=== PATIENT | female | born 1960 | race Caucasian/White ===

== ENCOUNTER 2016-06-08 19:39 | Emergency (ER) | payer OTHER ==
[~2016-06-08] VITALS: Ht 165.1 cm; Wt 70.3 kg
--- NOTE | 2016-06-08 19:48 | NUR ---
PT WHEELED TO WAITING ROOM, IN STABLE CONDITION
[2016-06-08 19:50] VITALS: BP 143/100; PULSE 78; RESP 18; TEMP 97.8; O2SAT 97
--- NOTE | 2016-06-08 19:55 | NUR ---
Patient to ER Chair for evaluation. Report given to BANDAR Hobson.
[2016-06-08] MEDS ORDERED: OXYCODONE/ACETAMINOPHEN *10*mg/325 mg TABLET PO ONE (20:00)
--- NOTE | 2016-06-08 20:05 | NUR ---
ER at bedside examining patient.
--- NOTE | 2016-06-08 20:10 | NUR ---
Pt brought by self, A&Ox4, pt c/o lower back pain radisting to L leg, states she run out of her percocet, skin pink and warm, cap refill <3, VSS.
[2016-06-08] MEDS ORDERED: OXYCODONE/ACETAMINOPHEN *10*mg/325 mg TABLET ONE (20:15)
[2016-06-08] MEDS ORDERED: OXYC-158 PO (20:17)
[2016-06-08] MEDS ORDERED: [UNRECOGNIZED DRUG - REMARK] (20:18)
[2016-06-08] MEDS ORDERED: CARI350T27 PO (20:18)
[2016-06-08 21:20] VITALS: BP 139/97; PULSE 70; RESP 18; TEMP 98.4; O2SAT 98
--- NOTE | 2016-06-08 21:20 | NUR ---
Patient given written and verbal discharge instructions and verbalizes understanding. ER MD discussed with patient the results and treatment provided. Patient in stable condition. ID arm band removed.Patient educated on pain management and to follow up with PMD. Pain Scale 2/10. Opportunity for questions provided and answered.
== END 2016-06-08 21:20 | disposition home or self-care (01) ==
LOC: SED 19:39
DX: M54.40 Lumbago with sciatica, unspecified side (principal); Z91.02 Food additives allergy status
CPT/HCPCS: 99282

== ENCOUNTER 2016-07-06 16:47 | Inpatient (IN) | payer OTHER ==
[~2016-07-06] VITALS: Ht 165.1 cm; Wt 76.2 kg
[2016-07-06 16:47] VITALS: BP 122/96; PULSE 89; RESP 18; TEMP 98.2; O2SAT 99
[~2016-07-06 16:47] MED LIST: CARI350T27 PO; OXYC-158 PO; [UNRECOGNIZED DRUG - REMARK]
[2016-07-06] MEDS ORDERED: methylPREDNISolone SOD SUCC/PF 62.5 MG/ML VIAL IM ONE (17:00)
[2016-07-06] MEDS ORDERED: MORPHINE SULFATE 10 MG/ML VIAL IM ONE (17:00)
--- NOTE | 2016-07-06 17:00 | NUR ---
Patient to ER bed 01 to gown for evaluation. Side rails up.
--- NOTE | 2016-07-06 17:03 | NUR ---
Pt brought by ambulance, A&Ox4, pt c/o lower back pain 08/29 since today, skin pink and diaphoretic , cap refill <3, VSS, respirations even and unlabored.
--- NOTE | 2016-07-06 17:03 | NUR ---
Dr Kidd at bedside examining patient
--- NOTE | 2016-07-06 17:25 | NUR ---
Patient having tonic-clonic seizure, duration 2 minutes, pt placed on O2 face mask , turned to the side and suctioned, VS WNL at this time . MD brown
[2016-07-06] MEDS ORDERED: LORazepam 2 MG/ML VIAL (FOR ER USE) IVP ONE (17:30)
--- NOTE | 2016-07-06 17:30 | NUR ---
Seizure precautions in place. Seizure pads applied to gurney. Side rails up.
[2016-07-06] MEDS ORDERED: LORazepam 2 MG/ML VIAL (FOR ER USE) ONE (17:35)
[2016-07-06 17:58] LABS: BASOPHILS % (AUTO) 0.3 % (0.0-2.0); EOSINOPHILS % (AUTO) 0.1 % (0.0-4.0); HEMATOCRIT 40.4 % (36-48); HEMOGLOBIN 13.2 g/dL (12.0-16.0); LYMPHOCYTES % (AUTO) 8.7 % (20.5-51.5); MEAN CORPUSCULAR HEMOGLOBIN 29 pg (27-31); MEAN CORPUSCULAR HGB CONC 33 % (32-36); MEAN CORPUSCULAR VOLUME 88 fL (79.0-98.0); MONOCYTES # (AUTO) 0.4 K/uL (0.0-1.0); MONOCYTES % (AUTO) 3.3 % (1.7-9.3); NEUTROPHILS # (AUTO) 10.1 K/uL (1.8-7.7); NEUTROPHILS % (AUTO) 87.6 % (40.0-70.0); PLATELET COUNT (AUTO) 323 K/uL (130-430); RED BLOOD CELL COUNT(AUTO) 4.58 MIL/uL (4.2-6.2); RED CELL DISTRIBUTION WIDTH 13.7 % (9.0-15.0); WHITE BLOOD COUNT (AUTO) 11.5 K/uL (4.8-10.8)
[2016-07-06] MEDS ORDERED: TRAZ300T2 PO (18:01)
[2016-07-06] MEDS ORDERED: PRO20 PO (18:01)
[2016-07-06] MEDS ORDERED: SOM350 PO (18:01)
[2016-07-06] MEDS ORDERED: ZOLP10TA2 PO (18:01)
[2016-07-06] MEDS ORDERED: LISI10TA5 PO (18:01)
[2016-07-06 18:09] LABS: ANION GAP 23 (5-15); CALCIUM 8.8 mg/dL (8.4-11.0); CREATININE 0.95 mg/dL (0.55-1.30); GLUCOSE 292 mg/dL (70-99); UREA NITROGEN, BLOOD 5 mg/dL (8-21)
[2016-07-06 18:14] LABS: GFR AFRICAN AMERICAN 78 mL/min (>90)
[2016-07-06 18:18] LABS: CHLORIDE 73 mmol/L (98-107); POTASSIUM 2.6 mmol/L (3.5-5.1); SODIUM SERUM 111 mmol/L (136-145)
[2016-07-06 18:20] LABS: ALANINE AMINOTRANSFERASE 18 U/L (12-78); ALBUMIN 4.1 g/dL (3.4-4.8); ASPARTATE AMINOTRANSFERASE 19 U/L (10-37); TOTAL BILIRUBIN 0.9 mg/dL (0.0-1.0); TOTAL PROTEIN, SERUM 8.2 g/dL (6.4-8.3)
[2016-07-06 18:21] LABS: PHENYTOIN (DILANTIN) 0.5 ug/mL (10.0-20.0); VALPROIC ACID < 3 ug/mL (50-100)
[2016-07-06] MEDS ORDERED: NACL 0.9% 1,000 ML IV ONE ×2 (18:30→19:00)
[2016-07-06 18:38] LABS: CARBAMAZEPINE (TEGRETOL) < 0 ug/mL (4-12)
[2016-07-06] MEDS ORDERED: KCL 20 mEq in 100 mL (PREMIX) 100 ML IV ONE (18:45)
[2016-07-06 18:54] LABS: BARBITURATE, URINE NEGATIVE (NEG <=200); BENZODIAZEPINE, URINE NEGATIVE (NEG <=150); CANNABINOID, URINE NEGATIVE (NEG <=50); COCAINE, URINE NEGATIVE (NEG <=150); METHAMPHETAMINES SCREEN,URINE NEGATIVE (NEG <=500); OPIATE, URINE POSITIVE (NEG <=100); PHENCYCLIDINE SCREEN,URINE NEGATIVE (NEG <=25); UR TRICYCLIC ANTIDEPRESSANTS NEGATIVE (NEG <=300); URINE AMPHETAMINE NEGATIVE (NEG <=500); URINE METHADONE NEGATIVE (NEG <=200); URINE OXYCODONE SCREEN NEGATIVE (NEG <=100); URINE PROPOXYPHENE SCREEN NEGATIVE (NEG <=300)
--- NOTE | 2016-07-06 19:00 | NUR ---
Sean abdullahi in [facility] - 07/06/16 at [address] Bennett called by front desk monitor for STAT renal consult
--- NOTE | 2016-07-06 19:00 | NUR ---
Patient will be admitted to care of Dr Singh . Admitted to Tele unit. Will go to room 113A. Belongings list completed. Summary report printed. Report will be given at bedside.
--- NOTE | 2016-07-06 19:20 | NUR ---
ADMIT NOTE Received pt from ER to the floor with a diagnosis of seizure and hyponatremia. Admission process initiated. patient oriented to pain management, safety and call light-teach back done.
[2016-07-06 19:34] VITALS: BP 157/93; PULSE 82; RESP 20; O2SAT 97
--- NOTE | 2016-07-06 19:53 | NUR ---
recieved call from dr. cardenas- report to md labs and complain. md order lab urine na, urine osmolality, urine creatinine. serum osmolality.
--- NOTE | 2016-07-06 19:57 | NUR ---
CONSULTATION PAGED REASON FOR CONSULTATION:HYPONATREMIA WAS CONSULT CALLED?Y PERSON WHO WAS NOTIFIED:[facility] CONSULTING PHYSICIAN:ISADORA FERRO (JESSY [facility]LLINS SENIOR TECHNICAL BUSINESS ANALYST) CEMENT TESTER ASSISTANT SPECIALTY:RENAL CEMENT TESTER ASSISTANT PHONE NUMBER:[phone]
--- NOTE | 2016-07-06 20:00 | NUR ---
Initial Notes Patient alert, able to make needs known. Patient denies pain at this time. No SOB noted, on room air. Denies nausea/vomiting at this time. IV site patent, flushes well. Hx: Seizure-side rails padded. Family members at bedside. Goal of pain management, cardiac/GI stability and safety this shift. Call light within reach. Will continue to monitor.
[2016-07-06 21:21] LABS: CALCIUM 8.4 mg/dL (8.4-11.0); CREATININE 0.69 mg/dL (0.55-1.30); POTASSIUM 3.5 mmol/L (3.5-5.1)
[2016-07-06 21:47] LABS: TOTAL BILIRUBIN 0.7 mg/dL (0.0-1.0)
[2016-07-06 21:48] LABS: ALBUMIN 3.7 g/dL (3.4-4.8); TOTAL PROTEIN, SERUM 7.8 g/dL (6.4-8.3)
--- NOTE | 2016-07-06 21:50 | NUR ---
Spoke to on the phone, informed regarding critical value of Na-112 and Chloride- 78. New orders received. Will carry out. state to call her later for when other lab results come back.
--- NOTE | 2016-07-06 22:15 | NUR ---
Notes Patient resting in bed, c/o pain, will page MD for orders. No SOB noted at this time. Patient used bedpan to void. IV site patent, flushes well, infusing fluids as ordered. Call light within reach. Will continue to monitor.
[2016-07-06] MEDS: SODIUM CHLORIDE 3% *HI-ALERT* 250 ML IV SCH (22:21)
--- NOTE | 2016-07-06 23:33 | NUR ---
PAGED: I PAGED DR. BLAS @ [phone] I SPOKE WITH GARETT EXCHANGE
[2016-07-06 23:50] VITALS: BP 160/104; PULSE 88; RESP 16; TEMP 97; O2SAT 96
--- NOTE | 2016-07-06 23:56 | NUR ---
PAGED: I PAGED ELMO. ASSOCIATE @ [phone] DR. BLAS IMAGING NURSE SHARON I SPOKE WITH RISHABH VALERO
--- NOTE | 2016-07-07 00:10 | NUR ---
Notes Patient sleeping at this time. Awaiting on to call back, pt c/o pain. No SOB noted. Afebrile. IV site patent, flushes well. Call light within reach. Will continue to monitor.
[2016-07-07] MEDS: MORPHINE 2 MG/ML INJ. SYRINGE IVP PRN ×5 (01:18→20:39)
--- NOTE | 2016-07-07 02:05 | NUR ---
Notes Patient sleeping at this time. No s/s of pain noted. No SOB noted at this time. IV site patent, flushes well, infusing fluids as ordered. Call light within reach. Will continue to monitor.
--- NOTE | 2016-07-07 04:25 | NUR ---
Notes Patient sleeping at this time. No s/s of pain noted. No SOB noted. Afebrile. IV site patent, flushes well. Call light within reach. Will continue to monitor.
[2016-07-07 04:34] LABS: ALBUMIN 3.5 g/dL (3.4-4.8); CALCIUM 8.7 mg/dL (8.4-11.0); CREATININE 0.63 mg/dL (0.55-1.30); POTASSIUM 4.1 mmol/L (3.5-5.1); THYROID STIMULATING HORMONE 0.31 uIu/mL (0.34-4.82); TOTAL BILIRUBIN 0.6 mg/dL (0.0-1.0); TOTAL PROTEIN, SERUM 7.3 g/dL (6.4-8.3)
[2016-07-07 05:15] VITALS: BP 157/100; PULSE 94; RESP 16; TEMP 97.8; O2SAT 97
--- NOTE | 2016-07-07 06:46 | NUR ---
Closing Notes Patient denies pain at this time. No SOB noted, on room air. Denies nausea/vomiting at this time. IV site patent, flushes well. Seizure-side rails padded. Goal of pain management, cardiac/GI stability and safety met. Call light within reach. Will continue to monitor.
--- NOTE | 2016-07-07 08:00 | NUR ---
RN Rounds patient lying on bed alert oriented X4, patient was assessed and patient said she is feeling better today, her iv of 3% NS is running as ordered. Dr. cardenas was called to D/C the order of the 0.9% NS IVF that was ordered but never ran. and the normal saline was D/C through a phone order. will follow up with the patient.
--- NOTE | 2016-07-07 08:00 | NUR ---
RN Rounds Patient lying on bed was assessed , vital signs stable , patient is alert oriented . patient is running her ivf as prescribed will follow up
[2016-07-07 08:04] VITALS: BP 137/88; PULSE 90; RESP 14; TEMP 99.3; O2SAT 97
--- NOTE | 2016-07-07 08:44 | NUR ---
Nutrition Update Justin Scale 18 noted. Pt admitted for seizure, hyponatremia. Diet: NPO BMI: 28 kg/m2 RD to follow per nutrition care standards.
--- NOTE | 2016-07-07 09:08 | NUR ---
MD HERRERA SPOKE WITH ROBB TO PAGE DR. HERNANDEZ (SPANISH INSTRUCTOR FOR ÁNGEL HUTCHINS) PER BANDAR SCHMITT.
[2016-07-07 09:16] LABS: URINE SODIUM, RANDOM 149 mmol/L (40-220)
--- NOTE | 2016-07-07 10:13 | NUR ---
CONSULTATION CALLED REASON FOR CONSULT: SEIZURES PERSON WAS CALLED: [facility] [employer]S[facility]ING [employer]: MARY ( [employer] ARCHITECT FOR CEZAR RAMOS )
[2016-07-07] MEDS ORDERED: NS IV ONE (10:15)
[2016-07-07] MEDS ORDERED: PHENYTOIN SODIUM IV ONE (10:15)
[2016-07-07] MEDS ORDERED: PHENYTOIN SODIUM INJ 500 MG in NS 100 ML IV ONE (10:15)
--- NOTE | 2016-07-07 10:30 | NUR ---
RN ROUNDS PATIENT LEFT WRIST IVF WAS NOT WORKING, PATIENT WAS STARTED A NEW SALINE LOCK AT HER RIGHT FORE ARM.. PATIENT STILL LYING IN BED HUNGRY,, DR. BLAS WAS CONTACTED REGARDING ORDERING HER A DIET OR KEEPING HER NPO. WILL FOLLOW UP WITH DR. BLAS WELL WITH THE PATIENT
[2016-07-07 12:16] VITALS: BP 150/88; PULSE 91; RESP 18; TEMP 99; O2SAT 97
--- NOTE | 2016-07-07 12:30 | NUR ---
RN Rounds, patient was repositioned in bed the linen was straightened for the patient after emptying the bed centeno. since the patient is using the bed centeno for urine. but no bowel movement. will follow up on the patient's lab
--- NOTE | 2016-07-07 13:30 | NUR ---
RN Rounds patient complained of lower back pain, patient was given her pain med and patient was reassessed and it was 0 on 0/10 scale will follow up
--- NOTE | 2016-07-07 15:00 | NUR ---
RN Rounds patient was told to bring the home medication for Dr. Chino, patient will tell he son to bring it up. patient complained of no pain at this time. still the IVF of 3% Saline running, patient still voiding so almost every 2 hours. patient admits to over drink water at home.
[2016-07-07 16:23] VITALS: BP_SYST 111; BP_SYST 141; BP_DIAS 68; BP_DIAS 70; PULSE 70; PULSE 80; RESP 16; RESP 18; TEMP 98.4; TEMP 99.2; O2SAT 94; O2SAT 95
--- NOTE | 2016-07-07 17:00 | NUR ---
RN Rounds the doctor was contacted to get a meal for the patient. was allowed to eat regular diet. patient is more alert, has no complaints of pain or discomfort. will follow up .
[2016-07-07 17:39] LABS: CALCIUM 8.8 mg/dL (8.4-11.0); CREATININE 0.85 mg/dL (0.55-1.30); POTASSIUM 3.6 mmol/L (3.5-5.1)
[2016-07-07 17:42] LABS: ALBUMIN 3.5 g/dL (3.4-4.8); TOTAL BILIRUBIN 0.4 mg/dL (0.0-1.0); TOTAL PROTEIN, SERUM 7.2 g/dL (6.4-8.3)
--- NOTE | 2016-07-07 17:58 | NUR ---
RN Rounds patient lying on bed, eating her dinner. has no complaints. ivf still running. no issue for the time being.
[2016-07-07 19:40] VITALS: BP 139/71; PULSE 91; RESP 20; TEMP 97.2; O2SAT 98
--- NOTE | 2016-07-07 19:40 | NUR ---
INITIAL NOTES; -Pt is a/ox4, resting in bed. Pt denies any chest pain,pain,sob,or any acute distress. Vital signs 97.4, 139/71,91, 20,m0wys=94% r/a. IV site of rt f/a patent, both #22, no s/s any infiltration noted,drsg cdi. IVF NACL 3% @ 10ml/hr. Lung sounds sunil upper anterior lobes clear throughout all lobes. BS present,abdomen soft & nondistended. Assistance with bedpan. Seizure precaution in place. All side rails padded. Sunil pedi pulse normal, present. All safety measures in place. Discussed poc, all safety measures, instructed pt not to get out bed by self, if needs assistance, to use call light for assistance, pt verbalized understanding. Fall precaution in place. Call light w/in reach. Continue to monitor pt.
--- NOTE | 2016-07-07 19:48 | NUR ---
GAGANDEEP CALLED REGARDING A LAB RESULT INCLUDING SODIUM RESULT, NS 3% RATE DECREASED FROM 3% TO 2% BY DR. RUANO AND TO ORDER CMP AT 2300 AND TO CALL MD FOR LAB RESULT. -NO FURTHER ORDER PER MD THIS TIME. Addendum: 07/07/16 at 2016 by Brandee Theodore RN CORRECTION--NACL--NOT NS.
--- NOTE | 2016-07-07 20:39 | NUR ---
PAIN MEDICATION ADMINISTERED; -Pt is c/o abdominal pain, gave Morphine Sulfate 2mg IVP. See EMAR for pain reassessment w/in 30 mins. -Explained to pt after received pain medication, instructed pt not to get out bed by self, if needs assistance, to use call light for assistance, pt verbalized understanding. Fall precaution in place. Call light w/in reach. Continue to monitor pt.
[2016-07-07] MEDS: PHENYTOIN SODIUM 100 MG/2 ML VIAL (DILANTIN) IVP SCH (21:17)
[2016-07-07] MEDS: SODIUM CHLORIDE 3% *HI-ALERT* 250 ML IV SCH (21:22)
--- NOTE | 2016-07-07 22:16 | NUR ---
ROUNDS'; -Pt is resting in bed. Pt denies any chest pain,pain,sob,or any acute distress this time. No seizure activity noted. Fall precaution and seizure precaution in place. Call light w/in reach. Continue to monitor pt.
--- NOTE | 2016-07-07 22:49 | NUR ---
PAGED DR. BLAS REGARDING SLEEPING PILL -Pt is c/o unable to sleep,needed sleeping pill. Paged , now waiting for MD to return callback.
[2016-07-07 23:31] LABS: ALBUMIN 3.3 g/dL (3.4-4.8); CALCIUM 8.3 mg/dL (8.4-11.0); CREATININE 1.03 mg/dL (0.55-1.30); POTASSIUM 3.6 mmol/L (3.5-5.1); TOTAL BILIRUBIN 0.2 mg/dL (0.0-1.0); TOTAL PROTEIN, SERUM 6.8 g/dL (6.4-8.3)
--- NOTE | 2016-07-07 23:59 | NUR ---
NOTIFIED DR. RUANO REGARDING A LAB RESULT (CMP), -STOP NACL 3% NOW, SALINE KAYE PER . Addendum: 07/08/16 at 0046 by Brandee Theodore RN ADDITIONAL NOTES; READ TO DR. RUANO A LAB RESULT(CMP) INCLUDING XREULP=146, AND MORE. STOP IVF NACL 3%, SALINE LOCK PER .
[2016-07-08] VITALS: BP 112/67; PULSE 80; RESP 16; TEMP 98; O2SAT 95
--- NOTE | 2016-07-08 00:01 | NUR ---
STOPPED NACL 3% IVF PER MD
[2016-07-08] MEDS: ZOLPIDEM TARTRATE 5 MG TABLET PO PRN ×2 (00:06→22:33)
--- NOTE | 2016-07-08 00:06 | NUR ---
ROUNDS; GAVE AMBIEN 10MG PO FOR SLEEPING -Gave Ambien 10 mg po upon pt requested for sleeping. Pt denies any pain,sob,or any acute distress. No seizure activity noted. Fall precaution and seizure precaution in place. Call light w/in reach. Continue to monitor pt.
--- NOTE | 2016-07-08 00:35 | NUR ---
ENDORSED TO MICHAEL TO CONTINUE CARE -Pt is resting. No s/s any pain,sob,or any acute distress noted. No seizure activity noted. Fall precaution and seizure precaution in place. Call light w/in reach. Continue to monitor pt.
--- NOTE | 2016-07-08 00:35 | NUR ---
RECEIVED REPORT FROM CARMELA PORTILLO. ACCEPTING PATIENT CARE.
--- NOTE | 2016-07-08 01:48 | NUR ---
ROUNDS PATIENT IS SLEEPING WITH VISIBLE RISE AND FALL OF CHEST. NO ACTUE S/S OF DISTRESS NOTED. BED IN LOWEST POSITION, SEIZURE PRECAUTIONS IN PLACE, BED ALARM ON, CALL LIGHT WITHIN REACH.
[2016-07-08] MEDS: MORPHINE 2 MG/ML INJ. SYRINGE IVP PRN ×3 (03:09→21:10)
--- NOTE | 2016-07-08 03:45 | NUR ---
ROUNDS PATIENT IS SLEEPING WITH VISIBLE RISE AND FALL OF CHEST NOTED. NO ACUTE S/S OF DISTRESS. BED IN LOWEST POSITION, SEIZURE AND FALL PRECAUTIONS IN PLACE, BED ALARM ON. CALL LIGHT WITHIN REACH. WILL CONTINUE TO MONITOR
[2016-07-08 04:00] VITALS: BP 114/67; PULSE 79; RESP 16; TEMP 97.1; O2SAT 96
[2016-07-08] MEDS: PHENYTOIN SODIUM 100 MG/2 ML VIAL (DILANTIN) IVP SCH ×2 (05:52→13:24)
--- NOTE | 2016-07-08 06:00 | NUR ---
ROUNDS PATIENT AWAKE AND ALERT. COMPLAINING OF PAIN 10/29. EXPLAINED TO PATIENT PAIN MEDICATION WAS Q4 AND COULD NOT BE ADMINISTERED UNTIL 708. PT VERBALIZED UNDERSTANDING. NO ACUTE S/S OF DISTRESS NOTED. FALL AND SEIZURE PRECAUTIONS IN PLACE WILL CONTINUE TO MONITOR. CALL LIGHT WITHIN REACH.
[2016-07-08 06:41] LABS: CALCIUM 8.9 mg/dL (8.4-11.0); CREATININE 0.98 mg/dL (0.55-1.30); POTASSIUM 3.4 mmol/L (3.5-5.1)
--- NOTE | 2016-07-08 08:00 | NUR ---
OPENING NOTE PT IN BED, EATING BREAKFAST. VS STABLE AND PT REPORTED SHE IS NOT IN PAIN OR UNCOMFORTABLE. FRIEND AT BEDSIDE.
--- NOTE | 2016-07-08 10:00 | NUR ---
ROUNDS PT SLEEPING IN BED. HER FRIEND IS SLEEPING AT BEDSIDE
[2016-07-08] MEDS ORDERED: POTASSIUM CHLORIDE 20 MEQ TAB.PRT.SR PO ONE (10:45)
--- NOTE | 2016-07-08 12:00 | NUR ---
ROUNDS PT SITTING UP IN BED, SPEAKING TO A FRIEND WHO IS AT BEDSIDE
[2016-07-08 12:42] VITALS: BP 134/64; PULSE 84; RESP 16; TEMP 98.8; O2SAT 95
--- NOTE | 2016-07-08 14:00 | NUR ---
ROUNDS PT IS SITTING UP IN BED, SPEAKING TO A FRIEND WHO IS AT BEDSIDE
--- NOTE | 2016-07-08 16:20 | NUR ---
ROUNDS PT IS IN BED, SLEEPING. SHE IS CLEAN AND APPEARS COMFORTABLE
[2016-07-08 16:41] VITALS: BP 129/91; PULSE 72; RESP 19; TEMP 99.3; O2SAT 97
--- NOTE | 2016-07-08 18:24 | NUR ---
ROUNDS PT IN BED, RESTING, AND APPEARS COMFORTABLE
[2016-07-08 19:30] VITALS: BP 130/65; PULSE 75; RESP 17; TEMP 98.5; O2SAT 97
--- NOTE | 2016-07-08 19:30 | NUR ---
INITIAL NOTE PT. RECEIVED AAOX4, NO S/S OF SOB OR DISTRESS. PT. STATES SHE IS HAVING PAIN AT THIS TIME IN HER LOWER BACK BUT THAT THE SALINE FLUSH CAUSES HER PAIN, SHE DOES NOT WISH TO HAVE HER MEDS THROUGH HER IV, BUT RATHER ORALLY. WILL NOTIFY MD, AND ASK FOR PO MEDICATION ORDERS. VSS. IV ACCESS NOTED TO LEFT HAND, 18 GAUGE, SALINE LOCK.NO REDNESS OR SWELLING TO THE SITE. THE LINE DOES FLUSH WELL AND HAS GOOD BLOOD RETURN, BUT PT. IS SENSITIVE TO THE FLUSHING EVEN WHEN DONE SLOWLY. PLAN OF CARE HAS BEEN DISCUSSED. ENCOURAGED PT. TO CALL FOR ASSISTANCE. VERBALIZES UNDERSTANDING. WILL CONTINUE TO MONITOR FOR CHANGES. SAFETY, FALL, AND SEIZURE PRECAUTIONS IN PLACE. CALL LIGHT IN REACH, SIDE RAILS PADDED FOR SAFETY.
--- NOTE | 2016-07-08 22:05 | NUR ---
ROUNDS PT. RESTING IN BED AT THIS TIME. DENIES PAIN. SPOKE WITH DR. ANTHONY WHO GAVE PO MED ORDERS FOR VICODIN AND DILANTIN. WILL ADMINISTER DILANTIN SOON IT IS READY IN THE [facility]. NO OTHER SIGNS OF DISTRESS NOTED AT THIS TIME. WILL CONTINUE TO MONITOR CLOSELY. SAFETY, FALL, AND SEIZURE PRECAUTIONS IN PLACE, CALL LIGHT IN REACH. BED IN LOWEST LOCKED POSITION.
[2016-07-08] MEDS: PHENYTOIN 100 MG CAPSULE PO SCH (23:33)
--- NOTE | 2016-07-09 00:06 | NUR ---
ROUNDS PT SLEEPING, BUT EASILY AWAKENS. NO S/S OF SOB OR DISTRESS. PT. STATES PAIN HAS IMPROVED FOLLOWING ADMINISTRATION OF PAIN MEDICATION. WILL CONTINUE TO MONITOR FOR CHANGES. SAFETY, FALL AND SEIZURE PRECAUTIONS IN PLACE. CALL LIGHT IN REACH. BED IN LOWEST LOCKED POSITION. PT. DOES NOT HAVE A HEADBOARD ON THE BED TO PLACE THE ALARM ON WAS SLEEPING IN BED WITH HER AND HE IS LONG, SO THEY REMOVED IT. EDUCATED PT. TO CALL FOR ASSISTANCE PRIOR TO GETTING OUT OF BED, VERBALIZES UNDERSTANDING. FREQUENT ROUNDING BEING DONE.
[2016-07-09 01:10] VITALS: BP 157/98; PULSE 86; RESP 20; TEMP 98.3; O2SAT 96
[2016-07-09] MEDS: MORPHINE 2 MG/ML INJ. SYRINGE IVP PRN ×4 (01:37→22:06)
--- NOTE | 2016-07-09 02:09 | NUR ---
ROUNDS PT. RESTING IN BED WITH EYES CLOSED, CHEST RISE AND FALL NOTED. NO S/S OF SOB OR DISTRESS. NO FACIAL GRIMACING FOR PAIN. WILL CONTINUE TO MONITOR FOR CHANGES. SAFETY, FALL AND SEIZURE PRECAUTIONS IN PLACE. CALL LIGHT IN REACH, BED IN LOWEST LOCKED POSITION.
--- NOTE | 2016-07-09 04:03 | NUR ---
ROUNDS PT. RESTING IN BED WATCHING TELEVISION. NO S/S OF SOB OR DISTRESS. PT DENIES PAIN AT THIS TIME. WILL CONTINUE TO MONITOR FOR CHANGES. SAFETY, FALL AND SEIZURE PRECAUTIONS IN PLACE. CALL LIGHT IN REACH, BED IN LOWEST LOCKED POSITION.
[2016-07-09] MEDS: PHENYTOIN 100 MG CAPSULE PO SCH ×3 (05:39→21:57)
--- NOTE | 2016-07-09 06:32 | NUR ---
CLOSING NOTE PT. RESTING IN BED WATCHING TELEVISION. STATES PAIN MEDICATION WAS EFFECTIVE IN RELIEVING PAIN. NO OTHER S/S OF SOB OR DISTRESS NOTED AT THIS TIME. ALL NECESSARY NEEDS WERE MET THROUGHOUT THE SHIFT. NO SEIZURE ACTIVITY WAS NOTED. SAFETY AND FALL PRECAUTIONS WERE MAINTAINED. WILL ENDORSE CARE TO AM NURSE. CALL LIGHT IN REACH, FALL, SEIZURE AND SAFETY PRECAUTIONS REMAIN IN PLACE.
[2016-07-09 06:36] VITALS: BP 128/64; PULSE 68; RESP 18; TEMP 98.4; O2SAT 98
[2016-07-09 07:26] LABS: BASOPHILS % (AUTO) 0.5 % (0.0-2.0); EOSINOPHILS # (AUTO) 0.1 K/uL (0.0-0.4); EOSINOPHILS % (AUTO) 0.9 % (0.0-4.0); HEMOGLOBIN 12.1 g/dL (12.0-16.0); LYMPHOCYTES # (AUTO) 1.6 K/uL (1.0-5.5); LYMPHOCYTES % (AUTO) 26.4 % (20.5-51.5); MEAN CORPUSCULAR HEMOGLOBIN 30 pg (27-31); MEAN CORPUSCULAR HGB CONC 34 % (32-36); MEAN CORPUSCULAR VOLUME 89 fL (79.0-98.0); MONOCYTES # (AUTO) 0.5 K/uL (0.0-1.0); MONOCYTES % (AUTO) 7.6 % (1.7-9.3); NEUTROPHILS # (AUTO) 3.8 K/uL (1.8-7.7); NEUTROPHILS % (AUTO) 64.6 % (40.0-70.0); PLATELET COUNT (AUTO) 335 K/uL (130-430); RED BLOOD CELL COUNT(AUTO) 4.05 MIL/uL (4.2-6.2); RED CELL DISTRIBUTION WIDTH 14.4 % (9.0-15.0)
[2016-07-09 07:34] LABS: ALBUMIN 3.4 g/dL (3.4-4.8); CALCIUM 8.9 mg/dL (8.4-11.0); CREATININE 0.74 mg/dL (0.55-1.30); POTASSIUM 3.7 mmol/L (3.5-5.1); TOTAL BILIRUBIN 0.4 mg/dL (0.0-1.0)
--- NOTE | 2016-07-09 08:13 | NUR ---
OPENING NOTE PATIENT IS AWAKE, DROWSY. REQUESTING BREAKFAST TRAY AT AM ASSESSMENT (0730). DENIES ANY PAIN AT THIS TIME. VITALS OBTAINED, LUNGS CLEAR. PT STATES SHE WANTS TO GO HOME.
[2016-07-09 08:19] VITALS: BP 146/88; PULSE 67; RESP 16; TEMP 97.8; O2SAT 97
--- NOTE | 2016-07-09 10:20 | NUR ---
PATIENT AMBULATED TO SHOWER WITH ASSIST.
--- NOTE | 2016-07-09 11:00 | NUR ---
DR ROOPA HERRERA. PT IS REQUESTING HER HOME MEDICATIONS BE RESTARTED
--- NOTE | 2016-07-09 11:02 | NUR ---
CALLED NEPRHOLOGIST, DR DONIS RE: MEDICATION ORDER. SPOKE TO YOHAN
[2016-07-09] MEDS ORDERED: CARISOPRODOL 350 MG TABLET PO PRN (11:15)
[2016-07-09] MEDS ORDERED: LISINOPRIL 10 MG TABLET (PRINIVIL) PO ONE (11:30)
[2016-07-09] MEDS ORDERED: FLUoxetine HCL 20 MG CAPSULE (PROzac) PO ONE (11:30)
[2016-07-09] MEDS: HYDROcodone/ACETAMIN 5-325 MG TAB (NORCO/ VICODIN) PO PRN ×2 (12:02→18:23)
--- NOTE | 2016-07-09 12:23 | NUR ---
PATIENT MEDICATED WITH ONE TIME DOSES OF HOME MEDS ORDERED. ADVISED SOMA IS NOT RESTARTED DUE TO SIDE EFFECT OF HYPONATREMIA
[2016-07-09 12:27] VITALS: BP 142/94; PULSE 77; RESP 18; TEMP 98; O2SAT 98
--- NOTE | 2016-07-09 15:15 | NUR ---
PATIENT IS REQUESTING MORE PAIN MEDICATION. ADVISED PATIENT THAT SHE COULD HAVE MORE IN ABOUT AN HOUR IT IS ORDERED EVERY FOUR HOURS NEEDED.
--- NOTE | 2016-07-09 16:30 | NUR ---
PATIENT MEDICATED FOR PAIN WITH MORPHINE. ADVISED PATIENT SHE COULD HAVE ANOTHER NORCO AT 1830, IN TWO HOURS
[2016-07-09 17:03] VITALS: BP 133/94; PULSE 73; RESP 20; TEMP 97.6; O2SAT 97
--- NOTE | 2016-07-09 17:30 | NUR ---
PATIENT CALLED DESK ASKING FOR HER "EVERY TWO HOUR" PAIN MEDICATION. RE-EXPLAINED TO PATIENT THAT HER PILL WAS EVERY SIX HOURS AND HER INJECTION WAS EVERY FOUR.
[2016-07-09 20:00] VITALS: BP 141/96; PULSE 72; RESP 16; TEMP 97.8; O2SAT 92
--- NOTE | 2016-07-09 20:00 | NUR ---
STARTING NOTE BURR GRINDER Patient sitting in bed accompanied by her partner. She is alert,oriented X4 and states she is not in pain at the moment. Fall precautions in place. Report received from the day shift nurse Danielle.
[2016-07-09] MEDS ORDERED: traZODone HCL 50 MG TABLET (DESYREL) PO SCH (21:00)
--- NOTE | 2016-07-09 22:00 | NUR ---
2200 NOTE Patient in bed resting comfortably. She requested her pain medication Morphine 2 mg. The nurse brought the medication, but the patient complained of pain and burning at the IV site. The nurse inserted a new IV line and removed the old not functional line. No S/S of any distress noted, only pain in her back per patient.
[2016-07-10 00:21] VITALS: BP 137/81; PULSE 78; RESP 18; TEMP 96.9; O2SAT 99
[2016-07-10] MEDS: HYDROcodone/ACETAMIN 5-325 MG TAB (NORCO/ VICODIN) PO PRN ×2 (00:54→09:16)
[2016-07-10] MEDS: ZOLPIDEM TARTRATE 5 MG TABLET PO PRN (01:02)
--- NOTE | 2016-07-10 01:08 | NUR ---
NOTE The patient requested her [place] for the back pain. She also asked for the Ambien. No other S/S of distress noted besides the pain.
--- NOTE | 2016-07-10 03:30 | NUR ---
NOTE Patient in bed sleeping. No S/S of pain or distress noted. Fall precautions in place.
[2016-07-10 04:24] VITALS: BP 145/95; PULSE 86; RESP 20; TEMP 97; O2SAT 97
--- NOTE | 2016-07-10 05:58 | NUR ---
NOTE Patient in bed sleeping. No distress or pain noted. Bed in lowest position, call light within reach.
[2016-07-10] MEDS: PHENYTOIN 100 MG CAPSULE PO SCH (06:13)
[2016-07-10] MEDS: MORPHINE 2 MG/ML INJ. SYRINGE IVP PRN (06:13)
--- NOTE | 2016-07-10 07:26 | NUR ---
OPENING NOTE PATIENT IS SLEEPING, DROWSY. NO SIGNS OF DISTRESS. PER TURNTABLE MAN PATIENT WAS AWAKE MOST OF THE NIGHT DESPITE AMBIEN AND OTHER SEDATING MEDICATIONS ADMINISTERED. STATES PATIENT WAS UP AND WALK IN HALLS AND WAITING IN DOORWAY FOR RN THROUGHOUT THE NIGHT. PER NIGHTSHIFT PT REPORTED NO RELIEF FROM LOWER BACK PAIN
[2016-07-10 08:00] VITALS: BP 141/93; PULSE 85; RESP 18; TEMP 97.5
[2016-07-10] MEDS ORDERED: FLUoxetine HCL 20 MG CAPSULE (PROzac) PO SCH (09:00)
[2016-07-10] MEDS ORDERED: LISINOPRIL 10 MG TABLET (PRINIVIL) PO SCH (09:00)
--- NOTE | 2016-07-10 09:38 | NUR ---
DR BLAS IN TO SEE PATIENT
[2016-07-10 10:40] VITALS: BP 141/85; PULSE 85; RESP 18; TEMP 98.5; O2SAT 98
--- NOTE | 2016-07-10 10:43 | NUR ---
IV DC'D AND PRESSURE DRESSING APPLIED. PATIENT GIVEN PRESCRIPTION MEDICATION FOR DILANTIN, WRITTEN INFORMATION ABOUT DOSAGE AND SIDE EFFECTS. S/O AT BEDSIDE FOR EDUCATION. PATIENT VERBALIZED UNDERSTANDING OF OPIOID DEPENDENCE, DILANTIN AND SEIZURE DISORDER. 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 PT TAKEN TO PRIVATE AUTO VIA WHEELCHAIR.
[2016-07-10 12:15] VITALS: BP 142/95; PULSE 81; RESP 16; TEMP 97.9; O2SAT 97
--- NOTE | 2016-07-10 16:12 | NUR ---
PHYSICAL THERAPY CO-SIGN The Physical Therapy Progress Notes documented by [employer] Floor Refinisher have been reviewed. Reviewed/Co-Signed by: Adelina Leblanc PT Documentation Done by:JONHNY HUYNH DRYCLEANER Addendum: 07/10/16 at 1612 by Adelina Leblanc PT Amended: Links added.
== END 2016-07-10 11:45 | disposition home or self-care (01) | DRG 641 ==
LOC: SED 16:47 → STU 18:55 → SMU 07-07 18:30
PROVIDERS: ADMIT Internal Medicine Hospice and Palliative Medicine; ATTEND Internal Medicine Hospice and Palliative Medicine
DX: E87.1 Hypo-osmolality and hyponatremia (principal); F19.20 Other psychoactive substance dependence, uncomplicated; R56.9 Unspecified convulsions; E87.2 Acidosis; I10 Essential (primary) hypertension; F32.9 Major depressive disorder, single episode, unspecified; M54.9 Dorsalgia, unspecified; G89.29 Other chronic pain; M54.30 Sciatica, unspecified side; E87.6 Hypokalemia; E87.8 Other disorders of electrolyte and fluid balance, not elsewhere classified; Z90.49 Acquired absence of other specified parts of digestive tract; Z98.84 Bariatric surgery status; Z91.041 Radiographic dye allergy status; Z79.899 Other long term (current) drug therapy
CPT/HCPCS: 36415; 70450-TC; 80048; 80053; 80156-TC; 80164-TC; 80185-TC; 80307; 82009-TC; 82533; 82570-TC; 83930-TC; 83935-TC; 84302-TC; 84443-TC; 84703; 85025; 96365; 96372; 96375; 97110-GP; 97116-GP; 97530-GP; 99285; J1165; J2060; J2270; J2930; J3480; J3490; J7030

== ENCOUNTER 2016-12-16 12:31 | Inpatient (IN) | payer OTHER ==
[2016-12-16] VITALS (10 sets, daily range): BP systolic 138–181
[~2016-12-16] VITALS: Ht 165.1 cm; Wt 81.6 kg
--- NOTE | 2016-12-16 11:30 | NUR ---
RN Rounds: Patient complains of difficulty falling asleep because of anxiety, encouraged patient to verbalize feelings. Advised patient to relax, dimmed lights to help her sleep. Will continue to monitor.
[~2016-12-16 12:31] MED LIST changes: +LISI10TA5 PO; +PRO20 PO; +SOM350 PO; +TRAZ300T2 PO; +ZOLP10TA2 PO
--- NOTE | 2016-12-16 12:31 | NUR ---
Note [place] in EDM - 12/16/16 at 1242 by SDEDAFJ Pt BIB ALS, placed to ER bed 1, on cardiac cath tech. Pt found by [place] in her home, ALOC, s/p taking Norcos of unknown amount. Pt alert, responsive, lethargic, mumbles when aksed questions, pin point pupils. Respirations even and non-labored. VSS.
--- NOTE | 2016-12-16 12:31 | NUR ---
BROUGHT IN BY [facility]. PLACED IN BED #[address] DOW AT BEDSIDE UPON ARRIVAL. REPORT GIVEN TO EMMY
--- NOTE | 2016-12-16 12:31 | NUR ---
Pt BIB ALS, placed to ER bed 1, on rn cardiac rehab. Pt found by [place] in her home, ALOC, s/p taking Norcos of unknown amount. Pt alert, responsive, lethargic, mumbles when aksed questions, pin point pupils. Respirations even and non-labored. VSS.
--- NOTE | 2016-12-16 12:32 | NUR ---
ACCORDING TO PARAMEDICS, PT WAS AT HOME AND [employer] OFFICERS CAME TO SEE HER NEW ROOMMATE, THE OFFICERS THEN NOTICED THAT PT WAS ALTERED AND CALLED 911.
--- NOTE | 2016-12-16 12:35 | NUR ---
Dr. Smith at bedside to assess pt.
--- NOTE | 2016-12-16 12:47 | NUR ---
Pt to CT via stretcher.
--- NOTE | 2016-12-16 12:55 | NUR ---
Pt returns from CT. Pt able to verbalize name, still remains disoriented.
[2016-12-16 13:01] LABS: ANION GAP 12 (5-15); CALCIUM 9.2 mg/dL (8.4-11.0); CHLORIDE 88 mmol/L (98-107); CREATININE 0.66 mg/dL (0.55-1.30); GLUCOSE 107 mg/dL (70-99); POTASSIUM 3.9 mmol/L (3.5-5.1); SODIUM SERUM 123 mmol/L (136-145); UREA NITROGEN, BLOOD 12 mg/dL (8-21)
[2016-12-16 13:02] LABS: GFR AFRICAN AMERICAN 118 mL/min (>90)
[2016-12-16 13:06] LABS: ALANINE AMINOTRANSFERASE 17 U/L (12-78); ALBUMIN 3.9 g/dL (3.4-4.8); ASPARTATE AMINOTRANSFERASE 17 U/L (10-37); BASOPHILS % (AUTO) 0.3 % (0.0-2.0); EOSINOPHILS % (AUTO) 0.6 % (0.0-4.0); HEMATOCRIT 36.4 % (36-48); HEMOGLOBIN 12.2 g/dL (12.0-16.0); LYMPHOCYTES # (AUTO) 1.2 K/uL (1.0-5.5); LYMPHOCYTES % (AUTO) 19.5 % (20.5-51.5); MEAN CORPUSCULAR HEMOGLOBIN 29 pg (27-31); MEAN CORPUSCULAR HGB CONC 34 % (32-36); MEAN CORPUSCULAR VOLUME 87 fL (79.0-98.0); MONOCYTES # (AUTO) 0.4 K/uL (0.0-1.0); MONOCYTES % (AUTO) 6.1 % (1.7-9.3); NEUTROPHILS # (AUTO) 4.8 K/uL (1.8-7.7); NEUTROPHILS % (AUTO) 73.5 % (40.0-70.0); PLATELET COUNT (AUTO) 294 K/uL (130-430); RED CELL DISTRIBUTION WIDTH 13.3 % (9.0-15.0); TOTAL BILIRUBIN 0.9 mg/dL (0.0-1.0); WHITE BLOOD COUNT (AUTO) 6.4 K/uL (4.8-10.8)
[2016-12-16 13:08] LABS: PROTHROMBIN TIME 10.6 SECS (9.5-12.5)
[2016-12-16 13:15] LABS: ACETAMINOPHEN < 1 ug/mL (1-30); ALCOHOL, BLOOD < 3 mg/dL (<10)
--- NOTE | 2016-12-16 13:50 | NUR ---
Dr. Smith informed of sustained elevated B/P. Pt to be medicated with Clonidine.
[2016-12-16] MEDS ORDERED: cloNIDine HCL 0.1 MG TABLET PO ONE (14:00)
--- NOTE | 2016-12-16 14:00 | NUR ---
Pt becomes more lucid. Pt only able to verbalize name.
[2016-12-16] MEDS ORDERED: KETOROLAC TROMETHAMINE 30 MG VIAL IVP ONE (14:30)
--- NOTE | 2016-12-16 14:30 | NUR ---
Pt states that she is in pain. Pt unable to verbalize pain location or intensity. Dr. Smith notified.
--- NOTE | 2016-12-16 14:38 | NUR ---
PT REQUESTING THAT I SPEAK WITH PTS SON. CALLED SON RISHABH AT GIVEN NUMBER. SON WILL ATTEMPT TO COME TO ER SOON.
--- NOTE | 2016-12-16 15:40 | NUR ---
ADMISSION NOTES ADMITTED FROM ER FOR ALOC AND POSSIBLE DRUG OD, PATIENT CAME IN VIA GURNEY AWAKE AND ALERT, NOT IN ACUTE DISTRESS. SINUS RHYTHM ON THE MONITOR, SPO2 97% ON ROOM AIR. IV FLUIDS NORMAL SALINE INFUSING VIA IV LOCK g.22 ON THE LEFT WRIST. INITIAL VITAL SIGN AND ASSESSMENT DONE. WILL CONTINUE TO MONITOR PATIENT.
--- NOTE | 2016-12-16 16:20 | NUR ---
CONSULTATION CALLED Reason for consultation: HYPONATREMIA Was consultation called? Y Person who was notified: RAFAELA Consulting physician: NAHUM HAMILTON Physician specialty: NEPHROLOGY Physician phone number: [phone] Attending physician: HAI MENDEZ
[2016-12-16] MEDS: NACL 0.9% 1,000 ML IV ONE ×2 (16:40→16:58)
[2016-12-16] MEDS ORDERED: HYDROcodone/ACETAMIN 5-325 MG TAB (NORCO/ VICODIN) PO ONE (16:45)
[2016-12-16] MEDS ORDERED: FAMOTIDINE 20 MG TABLET PO ONE (17:30)
[2016-12-16] MEDS ORDERED: ACETAMINOPHEN 325 MG TABLET PO PRN (18:30)
[2016-12-16] MEDS: OXYCODONE/ACETAMINOPHEN 5-325 TABLET PO PRN (18:32)
--- NOTE | 2016-12-16 19:00 | NUR ---
ENDORSEMENT: PT RESTING IN POSITION OF COMFORT, IVF INFUSING WELL, NO C/O PAIN, WILL ENDORSE TO GARMENT MANUFACTURER NURSE.
--- NOTE | 2016-12-16 19:30 | NUR ---
Start of shift assessment Received patient asleep. SR on radiation monitor. IV site: L wrist 20G, infusing NaCl 0.9% at 100cc/hr, no redness or infection noted. Clear lung sounds heard upon auscultation. Pt. on room air. Bed locked, HOB elevated to 30 degrees, side rails up. Will continue to monitor.
[2016-12-16] MEDS: CARISOPRODOL 350 MG TABLET PO SCH (20:19)
[2016-12-16] MEDS: traZODone HCL 50 MG TABLET (DESYREL) PO SCH (20:19)
--- NOTE | 2016-12-16 20:50 | NUR ---
Dr. Laughlin at bedside. Awaiting new orders.
--- NOTE | 2016-12-16 21:04 | NUR ---
Patient's son, Louis on the phone, updated son about patient's current medical status. Son also narrated patient's medical and hospitalization history, son confirmed meds the pt was taking at home.
[2016-12-16] MEDS: ZOLPIDEM TARTRATE 5 MG TABLET PO PRN (22:03)
[2016-12-16] MEDS ORDERED: cloNIDine HCL 0.1 MG TABLET PO PRN (22:15)
[2016-12-16 23:09] LABS: BILIRUBIN,URINE NEGATIVE (NEGATIVE); BLOOD, URINE NEGATIVE (NEGATIVE); CLARITY/URINE CLEAR (CLEAR); COLOR,URINE YELLOW (YELLOW); GLUCOSE,URINE NEGATIVE (NEGATIVE); KETONES,URINE 1+ (NEGATIVE); LEUKOCYTE ESTERASE ,URINE NEGATIVE (NEGATIVE); NITRITE, URINE NEGATIVE (NEGATIVE); PROTEIN URINE NEGATIVE (NEGATIVE); UROBILINOGEN,URINE 0.2 (0.2-1.0)
[2016-12-16] MEDS: POTASSIUM CHLORIDE 10 MEQ in NACL 0.9% 1,000 ML IV SCH (23:20)
[2016-12-16 23:22] LABS: BARBITURATE, URINE NEGATIVE (NEG <=200); BENZODIAZEPINE, URINE NEGATIVE (NEG <=150); CANNABINOID, URINE NEGATIVE (NEG <=50); COCAINE, URINE NEGATIVE (NEG <=150); METHAMPHETAMINES SCREEN,URINE NEGATIVE (NEG <=500); OPIATE, URINE POSITIVE (NEG <=100); PHENCYCLIDINE SCREEN,URINE NEGATIVE (NEG <=25); UR TRICYCLIC ANTIDEPRESSANTS NEGATIVE (NEG <=300); URINE AMPHETAMINE NEGATIVE (NEG <=500); URINE METHADONE NEGATIVE (NEG <=200); URINE OXYCODONE SCREEN POSITIVE (NEG <=100); URINE PROPOXYPHENE SCREEN NEGATIVE (NEG <=300)
[2016-12-17] VITALS (14 sets, daily range): BP systolic 102–169
[2016-12-17] MEDS: OXYCODONE/ACETAMINOPHEN 5-325 TABLET PO PRN ×4 (02:57→21:16)
--- NOTE | 2016-12-17 03:30 | NUR ---
RN Rounds: Patient asleep. VSS. Breathing even and unlabored. Will continue to monitor.
[2016-12-17 06:42] LABS: BASOPHILS % (AUTO) 0.3 % (0.0-2.0); EOSINOPHILS # (AUTO) 0.1 K/uL (0.0-0.4); EOSINOPHILS % (AUTO) 1.3 % (0.0-4.0); HEMATOCRIT 32.5 % (36-48); HEMOGLOBIN 10.7 g/dL (12.0-16.0); LYMPHOCYTES # (AUTO) 1.4 K/uL (1.0-5.5); LYMPHOCYTES % (AUTO) 25.3 % (20.5-51.5); MEAN CORPUSCULAR HEMOGLOBIN 29 pg (27-31); MEAN CORPUSCULAR HGB CONC 33 % (32-36); MEAN CORPUSCULAR VOLUME 87 fL (79.0-98.0); MONOCYTES # (AUTO) 0.4 K/uL (0.0-1.0); MONOCYTES % (AUTO) 7.8 % (1.7-9.3); NEUTROPHILS # (AUTO) 3.4 K/uL (1.8-7.7); NEUTROPHILS % (AUTO) 65.3 % (40.0-70.0); PLATELET COUNT (AUTO) 277 K/uL (130-430); RED BLOOD CELL COUNT(AUTO) 3.76 MIL/uL (4.2-6.2); RED CELL DISTRIBUTION WIDTH 13.8 % (9.0-15.0); WHITE BLOOD COUNT (AUTO) 5.4 K/uL (4.8-10.8)
[2016-12-17 07:06] LABS: CALCIUM 8.8 mg/dL (8.4-11.0); CREATININE 0.79 mg/dL (0.55-1.30); PHOSPHORUS 3.8 mg/dL (2.7-4.5); POTASSIUM 3.3 mmol/L (3.5-5.1); THYROID STIMULATING HORMONE 0.71 uIu/mL (0.34-4.82)
--- NOTE | 2016-12-17 07:29 | NUR ---
End of shift Patient's needs met. VSS. Endorsed care to day shift.
--- NOTE | 2016-12-17 07:30 | NUR ---
RECEIVED PATIENT ON BED ASLEEP.BREATHING EVEN AND UNLABORED.IVF INFUSING WELL;NO SIGNS AND SYMPTOMS OF INFILTRATION.NO ACUTE DISTRESS.SAFETY AND FALL PRECAUTIONS IN PLACE.CALL LIGHT WITHIN REACH
--- NOTE | 2016-12-17 07:45 | NUR ---
DR. DONIS CAME AND EXAMINED THE PATIENT;WITH ORDERS AND CARRIED OUT
--- NOTE | 2016-12-17 08:00 | NUR ---
SERVED BREAKFAST;ABLE TO CONSUME 90%;TOLERATED WELL
[2016-12-17] MEDS: FLUoxetine HCL 20 MG CAPSULE (PROzac) PO SCH (08:45)
[2016-12-17] MEDS: FAMOTIDINE 20 MG TABLET PO SCH (08:45)
[2016-12-17] MEDS: CARISOPRODOL 350 MG TABLET PO SCH ×2 (08:45→21:17)
[2016-12-17] MEDS: LISINOPRIL 10 MG TABLET (PRINIVIL) PO SCH (08:46)
[2016-12-17 08:47] LABS: FREE T4 (FREE THYROXINE) 0.9 ng/dL (0.6-1.6)
--- NOTE | 2016-12-17 09:17 | NUR ---
Nutrition Update Justin Scale 17 noted. Pt admitted for ALOC/hyponatremia, possible. Diet: regular BMI: 30 kg/m2 RD to follow per nutrition care standards.
[2016-12-17] MEDS ORDERED: POTASSIUM CHLORIDE 10 MEQ TAB.PRT.SR PO ONE (10:30)
--- NOTE | 2016-12-17 10:50 | NUR ---
Pt transported to med/surg bed 129A. Bedside report given to Zunilda MG RN. Pt in stable condition. All care endorse to Zunilda PORTILLO.
--- NOTE | 2016-12-17 11:00 | NUR ---
Opening Note Report received form Lena ICU nurse. Patient is in stable condition. IV is on the left wrist 22g running NS+10KCL. Oriented her to the room. Call light is within reach and bed is in low position. Will continue to monitor.
--- NOTE | 2016-12-17 14:00 | NUR ---
Rounds Patient is resting in bed. Call light is within reach. Will continue to monitor.
--- NOTE | 2016-12-17 16:25 | NUR ---
Rounds Patient is resting in bed. Call light is within reach and bed alarm is in place. Will continue to monitor.
--- NOTE | 2016-12-17 18:29 | NUR ---
Closing Note Patient is resting in bed. No signs of distress noted. Call light is within reach and bed alarm is in place. IV is on the left wrist running NS+10kcl@50. Will endorse care to the oncoming shift.
[2016-12-17] MEDS: POTASSIUM CHLORIDE 10 MEQ in NACL 0.9% 1,000 ML IV SCH (19:03)
--- NOTE | 2016-12-17 20:00 | NUR ---
Opening Notes Patient received walking back to bed from the bathroom. Patient is A/O x 3, slight forgetfulness. Lungs clear bilaterally and heart sounds are normal. No wounds noted. No edema present. Patient is experiencing dizziness when getting up. Informed to sit at the bedside before ambulating. She has a steady gait. Call light within reach and phone within reach. 2 bed rails are up and instructed the patient to use the call light or phone if she needs assistance. Will follow up on rounds.
[2016-12-17] MEDS: traZODone HCL 50 MG TABLET (DESYREL) PO SCH (21:00)
[2016-12-17] MEDS ORDERED: traZODone HCL 50 MG TABLET (DESYREL) ONE ×2 (21:13→21:18)
[2016-12-17] MEDS: ZOLPIDEM TARTRATE 5 MG TABLET PO PRN (21:15)
--- NOTE | 2016-12-17 22:00 | NUR ---
Rounds Patient is asleep in bed comfortably. Pain management is effective. Patient has no current needs. No signs of respiratory distress. Call light within reach and safety precautions in place. Will continue to monitor.
--- NOTE | 2016-12-18 00:10 | NUR ---
Rounds Patient asleep in bed. No change in condition. Will continue to monitor.
[2016-12-18 00:52] VITALS: BP_SYST 100
--- NOTE | 2016-12-18 02:04 | NUR ---
Rounds Patient awake in bed unable to sleep due to IV infusion pump alarm. IV tubing accumulating air bubbles. Replaced with new IV tubing. Patient alert and orient. No difficulty with respirations. Pain is tolerable. Call light within reach and informed patient to use it for assistance to the bathroom. Will continue to monitor.
[2016-12-18] MEDS: OXYCODONE/ACETAMINOPHEN 5-325 TABLET PO PRN (03:17)
--- NOTE | 2016-12-18 04:12 | NUR ---
Rounds Patient is asleep in bed. Tolerated pain medication well. No signs or symptoms of pain or difficulty with respirations. Call light within reach and will continue to monitor.
[2016-12-18 04:13] VITALS: BP_SYST 99
[2016-12-18 06:49] LABS: CREATININE 0.67 mg/dL (0.55-1.30); POTASSIUM 4.2 mmol/L (3.5-5.1)
--- NOTE | 2016-12-18 07:09 | NUR ---
Closing notes, Patient is awake in bed resting. On and off sleeping. Patient states she hasn't slept very well. No respiratory distress noted. Patient is ambulatory with a steady gate. IV is infusing on the right hand, patient and no infection or infiltration. Call light within reach and safety precautions are observed. Will endorse to the day shift.
--- NOTE | 2016-12-18 07:30 | NUR ---
INITIAL NOTE RECEIVED PATIENT FROM NEW PRODUCT TRAINER NURSE, PATIENT IS CURRENTLY RESTING IN BED, NO SIGNS OF DISTRESS NOTED, BREATHING IS EVEN AND UNLABORED, ASSESSMENT COMPLETE, PATIENT HAS IV IN LEFT FOREARM WITH FLUIDS INFUSING, NO SIGNS OF INFILTRATION NOTED, INSTRUCTED PATIENT TO USE CALL SALES IF ASSISTANCE IS NEEDED, PATIENT VERBALIZED UNDERSTANDING, CALL SALES LEFT NEXT TO PATIENT'S HAND, BED IN LOWEST POSITION, SIDE RAILS UP, FALL PRECAUTIONS IN PLACE, WILL CONTINUE TO MONITOR.
[2016-12-18 08:00] VITALS: BP_SYST 122
[2016-12-18] MEDS ORDERED: OXYCODONE/ACETAMINOPHEN *10*mg/325 mg TABLET PO ONE (09:15)
[2016-12-18] MEDS: FLUoxetine HCL 20 MG CAPSULE (PROzac) PO SCH (09:19)
[2016-12-18] MEDS: CARISOPRODOL 350 MG TABLET PO SCH (09:19)
[2016-12-18] MEDS: LISINOPRIL 10 MG TABLET (PRINIVIL) PO SCH (09:19)
[2016-12-18] MEDS: FAMOTIDINE 20 MG TABLET PO SCH (09:19)
--- NOTE | 2016-12-18 09:21 | NUR ---
MEDICATION PATIENT RECEIVED MORNING MEDICATION, EDUCATED PATIENT ON POTENTIAL SIDE EFFECTS OF MEDICATIONS, PATIENT VERBALIZED UNDERSTANDING PATIENT ALSO RECEIVED ONE TIME DOSE OF PAIN MEDICATION, WILL REASSESS EFFECTIVENESS, NO OTHER NEEDS AT THIS TIME, WILL CONTINUE TO MONITOR, FALL PRECAUTIONS IN PLACE.
[2016-12-18] MEDS ORDERED: FLU VACC QS 2017-18(36MOS+)/PF 0.5 ML/SYR SYRINGE I.M. PRN (10:00)
--- NOTE | 2016-12-18 10:25 | NUR ---
RN ROUNDS PATIENT SITTING UP IN BED WATCHING TV, PATIENT STATES HER PAIN IS DOWN TO A 2 AND THE MEDICATION HAS HELP SIGNIFICANTLY, NO OTHER NEEDS AT THIS TIME, WILL CONTINUE TO MONITOR, FALL PRECAUTIONS IN PLACE.
[2016-12-18 10:30] VITALS: BP_SYST 140
--- NOTE | 2016-12-18 12:07 | NUR ---
RN ROUNDS PATIENT RESTING IN BED, SON AT BEDSIDE, PATIENT HAS NO COMPLAINTS OF PAIN OR DISCOMFORT, FALL PRECAUTIONS IN PLACE, WILL CONTINUE TO MONITOR
[2016-12-18 12:10] VITALS: BP_SYST 140
--- NOTE | 2016-12-18 13:37 | NUR ---
RN ROUNDS PATIENT RESTING IN BED, NO COMPLAINTS OF PAIN OR DISCOMFORT, PATIENT IN STABLE CONDITION, WILL CONTINUE TO MONITOR, FALL PRECAUTIONS IN PLACE
== END 2016-12-18 14:50 | disposition home or self-care (01) | DRG 640 ==
LOC: SED 12:31 → SIC 15:23 → SMU 12-17 10:50
PROVIDERS: ADMIT Internal Medicine; ATTEND Internal Medicine
DX: E87.1 Hypo-osmolality and hyponatremia (principal); G93.41 Metabolic encephalopathy; F19.20 Other psychoactive substance dependence, uncomplicated; F11.20 Opioid dependence, uncomplicated; I10 Essential (primary) hypertension; F41.9 Anxiety disorder, unspecified; F32.9 Major depressive disorder, single episode, unspecified; G40.909 Epilepsy, unspecified, not intractable, without status epilepticus; M54.30 Sciatica, unspecified side; G89.29 Other chronic pain; M54.5 Low back pain; G89.4 Chronic pain syndrome; Z90.49 Acquired absence of other specified parts of digestive tract; Z79.899 Other long term (current) drug therapy; Z98.84 Bariatric surgery status; Z79.1 Long term (current) use of non-steroidal anti-inflammatories (NSAID); Z91.041 Radiographic dye allergy status; Z79.891 Long term (current) use of opiate analgesic
CPT/HCPCS: 36415; 70450-TC; 71010; 80048; 80053; 80307; 81003; 83735-TC; 83930-TC; 83935-TC; 84100-TC; 84439; 84443-TC; 84484; 85025; 85610-TC; 85730-TC; 87040-TC; 87081; 87086; 93005; 96374; 99285; G0480; G0481; G0482; J1885; J3480; J7030; Q2037

== ENCOUNTER 2019-02-12 16:56 | Inpatient (IN) | payer OTHER ==
[~2019-02-12] VITALS: Ht 167.6 cm; Wt 72.6 kg
[2019-02-12 17:13] VITALS: BP_SYST 153
--- NOTE | 2019-02-12 17:25 | NUR ---
ER Dr. Gauthier at bedside examining patient.
[2019-02-12] MEDS ORDERED: NACL 0.9% 1,000 ML IV ONE ×2 (17:30→22:00)
[2019-02-12] MEDS ORDERED: NALOXONE HCL 2 MG/2 ML SYR IVP ONE (17:30)
--- NOTE | 2019-02-12 17:32 | NUR ---
Patient to ER bed 02 to gown for evaluation. Side rails up.
--- NOTE | 2019-02-12 17:40 | NUR ---
Patient presented to ER Per son pt altered, defecating/urinating on self, multi meds taken. Patient A&Ox3, patient making eye contact, following command briefly but qickly returns to position in gurney, patient denies pain, denies N/V/D. Per son patient was found altered with urine a feces, per son patient takes PO Percocet, klonopin , tizanidine for chronic back pain.
--- NOTE | 2019-02-12 18:00 | NUR ---
# 22 gauge angiocath placed to right wrist. Use of asceptic technique. Opsite placed over site. Blood return noted. Blood for lab drawn from site. Flushed with 10 cc of normal saline. No evidence of infiltration noted. Patient tolerated well. Medicated per MD orders. IVF infusing with no s/s of infiltration at this time. Will cont to monitor
[2019-02-12 18:30] LABS: BASOPHILS % (AUTO) 0.6 % (0.0-2.0); EOSINOPHILS # (AUTO) 0.2 K/uL (0.0-0.4); LYMPHOCYTES # (AUTO) 0.8 K/uL (1.0-5.5); LYMPHOCYTES % (AUTO) 10.4 % (20.5-51.5); MEAN CORPUSCULAR HEMOGLOBIN 18 pg (27-31); MEAN CORPUSCULAR HGB CONC 30 % (32-36); MEAN CORPUSCULAR VOLUME 59 fL (79.0-98.0); MONOCYTES # (AUTO) 0.5 K/uL (0.0-1.0); MONOCYTES % (AUTO) 6.9 % (1.7-9.3); NEUTROPHILS % (AUTO) 79.1 % (40.0-70.0); PLATELET COUNT (AUTO) 273 K/uL (130-430); RED BLOOD CELL COUNT(AUTO) 3.96 MIL/uL (4.2-6.2); RED CELL DISTRIBUTION WIDTH 20.1 % (9.0-15.0); WHITE BLOOD COUNT (AUTO) 7.6 K/uL (4.8-10.8)
--- NOTE | 2019-02-12 18:30 | NUR ---
Attempted to do 12 lead EKG on patient, but patient is unable to cooperate and is unable to keep still.
[2019-02-12 18:44] LABS: ANION GAP 15 (5-15); CHLORIDE 100 mmol/L (98-107); CREATININE 0.67 mg/dL (0.55-1.30); GLUCOSE 122 mg/dL (70-99); POTASSIUM 3.5 mmol/L (3.5-5.1); SODIUM SERUM 139 mmol/L (136-145); UREA NITROGEN, BLOOD 15 mg/dL (8-21)
[2019-02-12 18:45] LABS: HEMOGLOBIN 6.9 g/dL (12.0-16.0)
[2019-02-12 18:46] LABS: HEMATOCRIT 23.5 % (36-48)
[2019-02-12 18:47] LABS: GFR AFRICAN AMERICAN 115 mL/min (>90)
[2019-02-12 18:53] LABS: ALANINE AMINOTRANSFERASE 8 U/L (12-78); ALBUMIN 4.3 g/dL (3.4-4.8); ASPARTATE AMINOTRANSFERASE 12 U/L (10-37); TOTAL BILIRUBIN 0.6 mg/dL (0.0-1.0)
[2019-02-12 18:54] LABS: ALCOHOL, BLOOD < 3 mg/dL (<10)
--- NOTE | 2019-02-12 19:36 | NUR ---
Pt defecated on self in diaper. Cleaned pt and changed linens. Tolerated well. Will cont. to monitor.
--- NOTE | 2019-02-12 19:55 | NUR ---
Dr. Easley at bedside examining pt.
--- NOTE | 2019-02-12 19:57 | NUR ---
Attempted to do EKG, pt continues to be uncooperative and unable to be still for reading. Pt on cardiac and O2 monitor. Will cont. to monitor.
[2019-02-12] MEDS ORDERED: LORazepam 2 MG/ML VIAL IVP ONE ×2 (20:30→22:00)
[2019-02-12] MEDS ORDERED: MORPHINE 4 MG/ML INJ. SYRINGE IVP ONE ×2 (20:45→21:30)
--- NOTE | 2019-02-12 21:00 | NUR ---
Pt went to CT scan via [employer]. Tolerated well. Will cont. to monitor.
[2019-02-12 21:02] LABS: FREE T4 (FREE THYROXINE) 0.8 ng/dl (0.8-1.5); THYROID STIMULATING HORMONE 0.46 uIu/mL (0.36-3.74)
--- NOTE | 2019-02-12 21:23 | NUR ---
Per MD. verbal order for morphine 4mg IVP. PT on cardiac/O2 monitor.
--- NOTE | 2019-02-12 21:46 | NUR ---
Dr. Easley at bedside for rectal temp and rectal exam with myself as wire winder. temp is 99.0
--- NOTE | 2019-02-12 22:00 | NUR ---
Dr. Easley speaking to poison control. REports that it can cause seizures. Seizure precautions initiatedated.
[2019-02-12] MEDS ORDERED: levETIRAcetam 1,000 MG in NS 100 ML IV ONE ×4 (22:15)
[2019-02-12] MEDS ORDERED: cefTRIAXone 2 GM VIAL ONE (22:58)
--- NOTE | 2019-02-12 23:00 | NUR ---
Pt continues to have involuntary jerking. CODI DELGADILLO made aware.
[2019-02-12 23:49] LABS: BILIRUBIN,URINE NEGATIVE (NEGATIVE); CLARITY/URINE CLEAR (CLEAR); COLOR,URINE YELLOW (YELLOW); GLUCOSE,URINE NEGATIVE (NEGATIVE); KETONES,URINE 1+ (NEGATIVE); LEUKOCYTE ESTERASE ,URINE NEGATIVE (NEGATIVE); NITRITE, URINE NEGATIVE (NEGATIVE); PH,URINE 6.5 (5.0-8.0); PROTEIN URINE NEGATIVE (NEGATIVE); UROBILINOGEN,URINE 0.2 (0.2-1.0)
[2019-02-12 23:51] LABS: BLOOD, URINE TRACE (NEGATIVE)
[2019-02-13 00:05] LABS: OPIATE, URINE POSITIVE (NEG <=100)
[2019-02-13 00:06] LABS: BARBITURATE, URINE NEGATIVE (NEG <=200); BENZODIAZEPINE, URINE POSITIVE (NEG <=150); CANNABINOID, URINE NEGATIVE (NEG <=50); COCAINE, URINE NEGATIVE (NEG <=150); METHAMPHETAMINES SCREEN,URINE NEGATIVE (NEG <=500); PHENCYCLIDINE SCREEN,URINE NEGATIVE (NEG <=25); UR TRICYCLIC ANTIDEPRESSANTS NEGATIVE (NEG <=300); URINE AMPHETAMINE NEGATIVE (NEG <=500); URINE METHADONE NEGATIVE (NEG <=200); URINE OXYCODONE SCREEN NEGATIVE (NEG <=100); URINE PROPOXYPHENE SCREEN NEGATIVE (NEG <=300)
[2019-02-13 00:38] LABS: WBC,URINE 0-3 /HPF (0-3)
[2019-02-13 00:39] LABS: BACTERIA,URINE FEW /HPF (None Seen)
--- NOTE | 2019-02-13 01:00 | NUR ---
Dr. Easley speaking to pts son in regards to blood transfusion.
--- NOTE | 2019-02-13 01:00 | NUR ---
Pts Hgb is 7.3. ER made aware. Per Dr. Easley he states, "cancel the 1 prbc order."
[2019-02-13 01:03] LABS: ACETAMINOPHEN < 1 ug/mL (1-30)
--- NOTE | 2019-02-13 01:10 | NUR ---
Dr. Easley spoke to son Louis who has given Dr. Easley permission for blood transfusion.
[2019-02-13 01:12] LABS: CARBAMAZEPINE (TEGRETOL) < 0 ug/mL (4-12); VALPROIC ACID < 3 ug/mL (50-100)
--- NOTE | 2019-02-13 01:15 | NUR ---
Dr. Easley spoke to pts son. Per son pts last known well was Wednesday. He reports that he saw her yesterday (Wednesday) at 1400 and he saw her "stumbling around, incoherent, defecated and incontinent." Reports that she has had a similar episode with Ambien int he past. Reports she has gotten seizure like activity when taking it. Also states that she has had HX of buying ambien "off the streets" for her chronic back pain.
[2019-02-13 01:29] LABS: HEMATOCRIT 25.3 % (36-48); HEMOGLOBIN 7.3 g/dL (12.0-16.0)
--- NOTE | 2019-02-13 01:32 | NUR ---
Got Telemetry admit order from Dr. Wilkes, brought to Dr. Viera attention that pts blood pressure has been fluctuating and pt has been steady at 130's. He states, "We will start with Telemtry."
--- NOTE | 2019-02-13 01:54 | NUR ---
Spoke to [facility] AVIS Morgan RN who states "HR and blood pressure is too high"
[2019-02-13] MEDS ORDERED: METOPROLOL TARTRATE 5 MG/5 ML VIAL IVP ONE (02:00)
--- NOTE | 2019-02-13 02:20 | NUR ---
Called [facility] for bed, will call back with assignment.
[2019-02-13] MEDS ORDERED: LORazepam 2 MG/ML VIAL IVP PRN (03:00)
--- NOTE | 2019-02-13 03:40 | NUR ---
Pt resting comfortably in bed. Ocassional jerking. Will continue to cardiac/O2 monitor.
[2019-02-13] MEDS: D5NS 1,000 ML IV SCH ×2 (03:54→16:37)
--- NOTE | 2019-02-13 04:49 | NUR ---
Unable to do medication reconcilation due to pts condition.
--- NOTE | 2019-02-13 04:56 | NUR ---
ADMISSION: The patient, FLO LYONS, 58 y/o, F admitted by SETH FISHER DO,WITH THE DIAGNOSIS OF METABOLIC ENCEPHALOPATHY TO ROOM 121 A .
--- NOTE | 2019-02-13 04:56 | NUR ---
Transfer to Tele via ACLS protocol. Licensed nurse present. IV present no signs or symptoms of infiltration.
[2019-02-13 05:23] VITALS: BP_SYST 162
--- NOTE | 2019-02-13 05:32 | NUR ---
Consultation Paged Reason for Consultation: ALOC Was consult called: Y Person who was notified: Maria E Consulting Physician: Gurmeet Liang (Dr. Gu is contract mail carrier [employer]umina Plant Supervisor Ordering Physician: Dr. Wilkes
--- NOTE | 2019-02-13 05:37 | NUR ---
Consultation Paged Reason for Consultation: Metabolic Encephalopaty Was consult called: Y Person who was notified: Maria E Consulting Physician: Mikala Warner Electroplating Worker Ordering Physician: Dr. Wilkes
[2019-02-13] MEDS ORDERED: hydrALAZINE HCL 20 MG/ML VIAL IVP SCH (06:00)
[2019-02-13] MEDS ORDERED: ONDANSETRON HCL 4 MG/2 ML VIAL IVP PRN (06:30)
[2019-02-13] MEDS ORDERED: MUPIROCIN 2% TOPICAL OINTMENT 22 GM NS PRN (06:30)
[2019-02-13] MEDS ORDERED: DOCUSATE SODIUM 100 MG CAPSULE PO PRN (06:30)
[2019-02-13] MEDS ORDERED: MAGNESIUM SULFATE 50 ML IV PRN (06:30)
[2019-02-13] MEDS ORDERED: MORPHINE 2 MG/ML INJ. SYRINGE IVP PRN (06:30)
--- NOTE | 2019-02-13 08:00 | NUR ---
OPENING NOTES Patient is resting in bed, IV fluids running, eyes closed, breathing easy and non-labored, patient is drowsy at this time. Educated on plan of care, patient is too drowsy to respond. Seizure pads on, no signs of distress at this time. Fall, safety, and seizure precautions. Addendum: 02/13/19 at 0835 by Migel Panchal RN Patient has a yang catheter.
[2019-02-13 08:16] VITALS: BP_SYST 102
--- NOTE | 2019-02-13 08:30 | NUR ---
Dr Wilkes rounds came to see patient, informed him about the patient's H/H, stated no transfusion at this time, consulted with neurologist Dr Segal, wants to wait on his consult and EEG results before started any new seizure medications for patient.
[2019-02-13 09:10] LABS: TOTAL IRON BIND. CAPACITY 600 ug/dL (250-450)
[2019-02-13] MEDS: cefTRIAXone 1 GM in D5W 50 ML IV SCH (10:03)
--- NOTE | 2019-02-13 10:03 | NUR ---
MEDICATION Patient is resting in bed, IV medication given, educated patient on medication, but patient is too drowsy to respond and stated understanding. No signs of distress at this time.
--- NOTE | 2019-02-13 10:34 | NUR ---
EEG milling machine tender in room
[2019-02-13 12:28] VITALS: BP_SYST 139
--- NOTE | 2019-02-13 13:42 | NUR ---
ROUNDS Patient is resting in bed, eyes closed, breathing easy and non-labored. Patient still remains drowsy, there are periods where she rolls in bed but her eyes remain closed. No signs of distress at this time. Fall, safety, and seizure precautions.
[2019-02-13] MEDS: MORPHINE 2 MG/ML INJ. SYRINGE IVP PRN ×4 (14:35→23:29)
--- NOTE | 2019-02-13 14:40 | NUR ---
PATIENT OPENED HER EYES patient has her eyes opened, patient was able to state name and , but patient stated that she does not have memory of what happened last night and why she is in the hospital, I explained to her why her son brought her to the hospital, patient verbalized understanding, informed her that she had an EEG done and about her consulting physicians that will be seeing her, patient verbalized understanding, patient complained of general pain 8/10, educated on medication use and side effects, patient verbalized understanding, no other signs of distress at this time, fall/safety and seizure precautions in place, informed patient that her daughter called this morning.
--- NOTE | 2019-02-13 15:17 | NUR ---
CALLED AND LEFT A MESSAGE TO MONET THE SPEECH THERAPIST
[2019-02-13 16:20] VITALS: BP_SYST 117
--- NOTE | 2019-02-13 17:08 | NUR ---
ROUNDS Patient is resting in bed, patient is more awake, able to let needs known and follow commands. IV fluids running, patient is tolerating it well. No signs of distress at this time. Fall, safety, and seizure precautions.
--- NOTE | 2019-02-13 18:00 | NUR ---
SPOKE TO PATIENT'S DAUGHTER Aydee, updated her on her mom's plan of care and condition, informed her that Dr Wilkes held all her home medications because he wants to rule out that her medications are not the cause of her seizure, daughter informed me that her mother had a seizure 1 year ago due to her ambien and that is why she does not take it anymore, but she verbalizes understanding why her mom is NPO and why her meds are held, she says her and her brother do not have the best relationship and that is who her mom lives with and the son does not want his mom to come back to the house.
--- NOTE | 2019-02-13 19:18 | NUR ---
closing notes Patient is resting in bed, new IV on the left wrist 24g. IV fluids resumed, patient still remains NPO, awaiting swallow eval. Educated patient and family on this, stated understanding. No signs of distress at this time. Will endorse to nightman nurse.
[2019-02-13 20:00] VITALS: BP_SYST 137
[2019-02-14 00:18] VITALS: BP_SYST 153
[2019-02-14] MEDS: MORPHINE 2 MG/ML INJ. SYRINGE IVP PRN ×4 (04:29→22:34)
[2019-02-14] MEDS: D5NS 1,000 ML IV SCH ×2 (04:59→18:44)
[2019-02-14] MEDS ORDERED: hydrALAZINE HCL 20 MG/ML VIAL IVP ONE (06:00)
[2019-02-14 06:38] LABS: BASOPHILS % (AUTO) 0.5 % (0.0-2.0); EOSINOPHILS % (AUTO) 0.2 % (0.0-4.0); MEAN CORPUSCULAR HEMOGLOBIN 17 pg (27-31); MEAN CORPUSCULAR HGB CONC 29 % (32-36); MEAN CORPUSCULAR VOLUME 60 fL (79.0-98.0); MONOCYTES # (AUTO) 0.4 K/uL (0.0-1.0); MONOCYTES % (AUTO) 9.9 % (1.7-9.3); NEUTROPHILS % (AUTO) 66.4 % (40.0-70.0); PLATELET COUNT (AUTO) 286 K/uL (130-430); RED CELL DISTRIBUTION WIDTH 20.3 % (9.0-15.0); WHITE BLOOD COUNT (AUTO) 4.5 K/uL (4.8-10.8)
[2019-02-14 06:48] LABS: CALCIUM 8.2 mg/dL (8.4-11.0); CREATININE 0.5 mg/dL (0.55-1.30)
[2019-02-14 07:06] LABS: FOLATE (FOLIC ACID) 17.7 ng/mL (>3.0)
[2019-02-14 07:28] LABS: HEMATOCRIT 20.9 % (36-48); HEMOGLOBIN 6.1 g/dL (12.0-16.0)
[2019-02-14 07:43] VITALS: BP_SYST 150
--- NOTE | 2019-02-14 08:00 | NUR ---
Opening notes, Received pt in bed, pt is aaox2, denies pain, no sob, no resp distress, no fever. safety precaution in place. call light in reach. bed in low position. encouraged patient to call for assist and pain medication or any other concern. will cont to monitor.
[2019-02-14 08:06] LABS: HEMOGLOBIN A1C 5.2 % (4.8-5.6)
[2019-02-14 08:29] LABS: POTASSIUM 2.8 mmol/L (3.5-5.1)
[2019-02-14] MEDS: cefTRIAXone 1 GM in D5W 50 ML IV SCH ×2 (08:56→09:10)
[2019-02-14] MEDS: POTASSIUM CHLORIDE 20 MEQ TAB.PRT.SR PO PRN ×2 (08:59→09:16)
[2019-02-14] MEDS ORDERED: KCL 20 mEq in 100 mL (PREMIX) 200 ML IV ONE (09:30)
--- NOTE | 2019-02-14 10:09 | NUR ---
pt given morphine sulfate for pain. call light in reach. will cont to monitor.
[2019-02-14] MEDS ORDERED: METOPROLOL TARTRATE 25 MG TABLET PO ONE (10:15)
--- NOTE | 2019-02-14 10:32 | NUR ---
Nutrition Update Justin Scale 14 noted. Pt admitted for metabolic encephalopathy. Diet: NPO BMI: 23.9 kg/m2 RD to follow per nutrition care standards.
--- NOTE | 2019-02-14 10:40 | NUR ---
grecia started, encouraged pt to call if she experience burning sensation in the iv sites. call light in reach.
--- NOTE | 2019-02-14 11:25 | NUR ---
PT AMBULATED WITH P.T. , PT USED FWW AND GAIT BELT WITH P.T.
[2019-02-14] MEDS: traMADol HCL HCL 50 MG TABLET (ULTRAM) PO PRN ×2 (11:32→21:12)
--- NOTE | 2019-02-14 11:32 | NUR ---
pt given ultram for pain on leg. safety precaution in place, will cont to monitor
[2019-02-14] MEDS: SOD FERRIC GLUC COMPLEX/SUC 125 MG in NS 100 ML IV SCH (12:00)
[2019-02-14 12:49] VITALS: BP_SYST 150
[2019-02-14] MEDS ORDERED: MORPHINE 2 MG/ML INJ. SYRINGE ONE (14:27)
--- NOTE | 2019-02-14 14:30 | NUR ---
blood transfusion started. encouraged patient to call for any signs and symptoms of allergic reaction. call light in reach. will cont to monitor.
[2019-02-14] MEDS: hydrALAZINE HCL 20 MG/ML VIAL IVP PRN (14:48)
[2019-02-14 16:20] VITALS: BP_SYST 146
--- NOTE | 2019-02-14 16:25 | NUR ---
S.T. SWALLOW EVAL SWALLOW EVAL COMPLETED. PT PRESENTS W/ FUNCTIONAL OROPHARYNGEAL DYSPHAGIA W/ TIMELY BOLUS MANIPULATION AND NO S/S OF ASPIRATION. REC: REGULAR TEXTURED DIET. THIN LIQUIDS OK. NURSE RAJI NOTIFIED. [id number] CH G8997 [id number] NOMS LEVEL 7
--- NOTE | 2019-02-14 17:43 | NUR ---
pt assisted with bed pain, pt voided 2x today, clear yellow urine. yang dc'd by willy barraza.
[2019-02-14 18:20] VITALS: BP_SYST 151
--- NOTE | 2019-02-14 18:20 | NUR ---
BLOOD TRANSFUSION COMPLETED WITH NO ADVERSE REACTION. VITALS WNL. WILL CONTINUE TO MONITOR.
--- NOTE | 2019-02-14 18:54 | NUR ---
CLOSING NOTES, PT HAS BEEN STABLE, NO FEVER, GIVEN PAIN MEDS REQUESTED, PT RECEIVED I UNITS OF PRBC FOR HGB LEVEL OF 6.1, PT TOLERATED WELL. CHÁVEZ DISCONTINUED AND PT VOIDED TWICE AFTER. WILL ENDORSE TO NIGHT NURSE.
--- NOTE | 2019-02-14 19:30 | NUR ---
Opening Note Received patient, awake, resting in bed. No s/sx of distress. IVF infusing well. Seizure pads on side rails, bed is locked in lowest position, bed alarm on. Instructed on use of call light, updated board and reviewed plan of care.
[2019-02-14 20:00] VITALS: BP_SYST 154
--- NOTE | 2019-02-14 20:42 | NUR ---
Out of bed Assisted patient OOB for use of restroom, for void and bowel movement; BM is gonzalez color, solid formed. She returned to bed, bed alarm on and call light w/iln reach.
[2019-02-14] MEDS: METOPROLOL TARTRATE 25 MG TABLET PO SCH (21:11)
--- NOTE | 2019-02-14 21:18 | NUR ---
Medications Due medication, Lopressor, given. Patient reporting moderate pain to low back and left leg; Ultram was given for moderate pain as ordered. Educated on side effects, she verbalized understanding.
--- NOTE | 2019-02-14 22:42 | NUR ---
C/O pain Reporting severe pain to lower back and left leg. Administered morphine 2mg for severe pain as ordered. Medication was pushed very slowly to patient's tolerance. Will follow up.
[2019-02-15] VITALS: BP_SYST 162
[2019-02-15] MEDS: hydrALAZINE HCL 20 MG/ML VIAL IVP PRN (00:03)
--- NOTE | 2019-02-15 00:10 | NUR ---
elevated B/P Viatal signs taken and B/P 162/96 ; administered Apresoline IVP as ordered for SBP >160. She requested gelatin snack and it was provided.
--- NOTE | 2019-02-15 02:02 | NUR ---
Restroom Patient assisted out of bed for use of restroom. She had a bowel movement, it was collected in hat and sample collected in specimen cup. Patient returned to bed and safety precautions in place, call light w/in reach.
[2019-02-15] MEDS: MORPHINE 2 MG/ML INJ. SYRINGE IVP PRN ×5 (02:38→21:02)
[2019-02-15 04:00] VITALS: BP_SYST 153
[2019-02-15] MEDS: D5NS 1,000 ML IV SCH ×2 (07:02→21:03)
[2019-02-15 07:39] VITALS: BP_SYST 161
--- NOTE | 2019-02-15 07:48 | NUR ---
OPENING NOTES, RECEIVED PT IN BED, PT IS AAOX3 , C/O OF PAIN, 09/28, PT JUST RECEIVED PAIN MEDICATION. SAFETY PRECAUTION IN PLACE. CALL LIGHT IN REACH. PT ASSISTED WITH BED SHIN AND IV BAG CHANGED. SAFETY PRECAUTION IN PLACE. CALL LIGHT IN REACH, BED IN LOW POSITION. WILL CONT TO MONITOR.
[2019-02-15] MEDS: METOPROLOL TARTRATE 25 MG TABLET PO SCH (08:28)
[2019-02-15 09:09] LABS: BASOPHILS % (AUTO) 0.7 % (0.0-2.0); EOSINOPHILS % (AUTO) 1.1 % (0.0-4.0); HEMATOCRIT 28.5 % (36-48); HEMOGLOBIN 8.6 g/dL (12.0-16.0); LYMPHOCYTES # (AUTO) 1.2 K/uL (1.0-5.5); LYMPHOCYTES % (AUTO) 28.2 % (20.5-51.5); MEAN CORPUSCULAR HEMOGLOBIN 20 pg (27-31); MEAN CORPUSCULAR HGB CONC 30 % (32-36); MEAN CORPUSCULAR VOLUME 66 fL (79.0-98.0); MONOCYTES # (AUTO) 0.3 K/uL (0.0-1.0); MONOCYTES % (AUTO) 6.2 % (1.7-9.3); NEUTROPHILS # (AUTO) 2.8 K/uL (1.8-7.7); NEUTROPHILS % (AUTO) 63.8 % (40.0-70.0); PLATELET COUNT (AUTO) 310 K/uL (130-430); RED BLOOD CELL COUNT(AUTO) 4.32 MIL/uL (4.2-6.2); RED CELL DISTRIBUTION WIDTH 26.1 % (9.0-15.0); WHITE BLOOD COUNT (AUTO) 4.3 K/uL (4.8-10.8)
[2019-02-15 09:20] LABS: CALCIUM 8.9 mg/dL (8.4-11.0); CREATININE 0.71 mg/dL (0.55-1.30)
[2019-02-15 09:22] LABS: POTASSIUM 2.8 mmol/L (3.5-5.1)
[2019-02-15] MEDS: SOD FERRIC GLUC COMPLEX/SUC 125 MG in NS 100 ML IV SCH (09:27)
--- NOTE | 2019-02-15 11:24 | NUR ---
PHYSICAL THERAPY CO-SIGN The Physical Therapy Progress Notes documented by Ergonomics Technician have been reviewed. Reviewed/Co-Signed by: Robson Layne PT Documentation Done by: CHARITY DE LA CRUZ PTA Addendum: 02/15/19 at 1125 by Robson Layne PT Amended: Links added.
--- NOTE | 2019-02-15 11:28 | NUR ---
PHYSICAL THERAPY CO-SIGN The Physical Therapy Progress Notes documented by Acquisition Cost Estimator have been reviewed. Reviewed/Co-Signed by: Robson Layne PT Documentation Done by: CHANDA SANTOS PTA Addendum: 02/15/19 at 1129 by Robson Layne PT Amended: Links added.
[2019-02-15 12:03] VITALS: BP_SYST 141
[2019-02-15] MEDS: POTASSIUM CHLORIDE 40 MEQ in NS 250 ML IV SCH (13:44)
[2019-02-15 16:57] VITALS: BP_SYST 159
--- NOTE | 2019-02-15 18:57 | NUR ---
CLOSING NOTES, PT HAS BEEN STABLE, NO FEVER, GIVEN PAIN MEDS REQUESTED, PT RECEIVED I BAG OF K-RIDER. 2ND BAG NEED TO BE GIVEN. PT UNABLE TO TOLERATED AT PRESCRIBED RATE OF 67 CC/HR. PT AMBULATED WITH ASSIST TO RESTROOM. WILL ENDORSE TO NIGHT NURSE.
[2019-02-15 20:00] VITALS: BP_SYST 161
[2019-02-15] MEDS: METOPROLOL TARTRATE 50 MG TABLET PO SCH (21:02)
[2019-02-15] MEDS: LISINOPRIL 10 MG TABLET (PRINIVIL) PO SCH (21:03)
--- NOTE | 2019-02-15 22:10 | NUR ---
Restroom Patient assisted out of bed for use of restroom. She voided and returned to bed. Safety precautions in place, call light w/in reach.
[2019-02-16] MEDS ORDERED: KCL 40 mEq in 100 mL (PREMIX) 100 ML IV ONE (00:53)
--- NOTE | 2019-02-16 01:10 | NUR ---
40 meq potassium chloride The patient's 2nd dose of 40 meq K-CL was not found in nursing unit, either in east or west. Per charge nurse I was to overide and take 40 meq's from pyxis. Pyxis unit did not have an exact match for the order. Pharmacy after hours was called, s/w Loni and she said if we use this pre-mixed solution will need to cancel order and get new order. Once again spoke with charge nurseTonya and she was confident that it can be mixed. Therefore, charge nurse Abelino, mixed per policy the 40 Meq of K CL in 250 ml of sodium chloride.
[2019-02-16] MEDS: POTASSIUM CHLORIDE 40 MEQ in NS 250 ML IV SCH (01:16)
[2019-02-16] MEDS: MORPHINE 2 MG/ML INJ. SYRINGE IVP PRN ×6 (01:16→21:10)
--- NOTE | 2019-02-16 01:16 | NUR ---
C/O PAIN Patient reporting severe pain left leg and back and administered morphine for severe pain as ordered.
[2019-02-16 03:44] VITALS: BP_SYST 144
--- NOTE | 2019-02-16 05:00 | NUR ---
pain medication reporting severe pain, administered morphine as ordered for severe pain
[2019-02-16] MEDS: D5NS 1,000 ML IV SCH ×2 (06:00→17:32)
--- NOTE | 2019-02-16 07:30 | NUR ---
closing note endorsed report. patient resting in bed no s/sx of distress
[2019-02-16 07:40] LABS: CALCIUM 8.8 mg/dL (8.4-11.0); CREATININE 0.52 mg/dL (0.55-1.30); POTASSIUM 3.8 mmol/L (3.5-5.1)
[2019-02-16 07:59] VITALS: BP_SYST 147
--- NOTE | 2019-02-16 08:00 | NUR ---
INITIAL NOTE: RECEIVED REPORT FROM REMOTE MORTGAGE UNDERWRITER NURSE. PT IS CURRENTLY AWAKE IN BED EATING BREAKFAST. VITAL SIGNS STABLE. PT ON ROOM AIR, NO DISTRESS NOTED. NO C/O PAIN AT THIS TIME. WILL CONTINUE PLAN OF CARE.
[2019-02-16 08:07] LABS: BASOPHILS % (AUTO) 0.6 % (0.0-2.0); EOSINOPHILS # (AUTO) 0.1 K/uL (0.0-0.4); EOSINOPHILS % (AUTO) 1.2 % (0.0-4.0); HEMATOCRIT 25.6 % (36-48); HEMOGLOBIN 7.6 g/dL (12.0-16.0); LYMPHOCYTES # (AUTO) 1.8 K/uL (1.0-5.5); LYMPHOCYTES % (AUTO) 40.5 % (20.5-51.5); MEAN CORPUSCULAR HEMOGLOBIN 20 pg (27-31); MEAN CORPUSCULAR HGB CONC 30 % (32-36); MEAN CORPUSCULAR VOLUME 68 fL (79.0-98.0); MONOCYTES # (AUTO) 0.5 K/uL (0.0-1.0); MONOCYTES % (AUTO) 11.3 % (1.7-9.3); NEUTROPHILS % (AUTO) 46.4 % (40.0-70.0); PLATELET COUNT (AUTO) 266 K/uL (130-430); RED BLOOD CELL COUNT(AUTO) 3.78 MIL/uL (4.2-6.2); RED CELL DISTRIBUTION WIDTH 26.4 % (9.0-15.0); WHITE BLOOD COUNT (AUTO) 4.4 K/uL (4.8-10.8)
[2019-02-16] MEDS: cefTRIAXone 1 GM in D5W 50 ML IV SCH (08:29)
[2019-02-16] MEDS: LISINOPRIL 10 MG TABLET (PRINIVIL) PO SCH ×2 (08:30→21:52)
[2019-02-16] MEDS: METOPROLOL TARTRATE 50 MG TABLET PO SCH ×2 (08:30→21:51)
[2019-02-16] MEDS: LORazepam 2 MG/ML VIAL IVP PRN (08:30)
[2019-02-16] MEDS: SOD FERRIC GLUC COMPLEX/SUC 125 MG in NS 100 ML IV SCH (10:13)
--- NOTE | 2019-02-16 10:28 | NUR ---
CHARGE NURSE NOTIFIED RN THAT PT HAS BEEN DOWNGRADED TO MED SURG.
[2019-02-16] MEDS: ACETAMINOPHEN 325 MG TABLET PO PRN (11:39)
[2019-02-16 12:35] VITALS: BP_SYST 130
--- NOTE | 2019-02-16 16:24 | NUR ---
RN NOTES: PT IS CURRENTLY WATCHING TV WHILE SITTING UP IN BED. NO C/O PAIN OR DISCOMFORT AT THIS TIME. NO RESPIRATORY DISTRESS NOTED. WILL CONTINUE TO MONITOR PT.
[2019-02-16 16:30] VITALS: BP_SYST 143
--- NOTE | 2019-02-16 18:03 | NUR ---
END OF SHIFT NOTE: PT REMAINED STABLE DURING SHIFT WITH NO MAJOR CHANGE IN CONDITION. PT ATE ABOUT 75% OF MEALS. PRN PAIN MEDICATION ADMINISTERED THROUGHOUT DAY. ALL MEDICATIONS ADMINISTERED WITHOUT COMPLICATIONS. WILL ENDORSE CARE TO SAMPLE HAND NURSE.
[2019-02-16 19:00] VITALS: BP_SYST 160
--- NOTE | 2019-02-16 19:15 | NUR ---
change of shift.pt present quiescent affect;calm,viewing tv programming.iv access intact;patent. general status stable.respiratory status stable@room air.call light/telephone w/in reach.
[2019-02-16 20:00] VITALS: BP_SYST 160
--- NOTE | 2019-02-16 20:00 | NUR ---
pt.assessed/v/s assessed;vb/p values elevated;to review emar med-list.pt stated slight pain:pain med if necessary due@2100p. i have apprised the pt.that snacks /beverages are available w./in the shift.pt.had requested pudding.iv access intact;patent. pt.capable to ambulate reposition self.call light/telephone w/in reach of the pt.
--- NOTE | 2019-02-16 21:00 | NUR ---
2100p medications administered;lisinoprel,metropolol;b/p meds.no requests posited @this hour.
--- NOTE | 2019-02-16 21:15 | NUR ---
pt.had requested medication;pain.dida;rn/chg has administered morphine;2mg ivp.to f/u re;pain medication efficacy per pain mgx protocol.
--- NOTE | 2019-02-16 22:00 | NUR ---
pt assessed.pt.presents quiescent affect;calm,resting.iv access intact;patent.pt.had requested sandwiches.i have provided the snacks. general status stable.respiratory status;unlabored call light/telephone w/in reach of the pt.
--- NOTE | 2019-02-17 | NUR ---
pt.assessed/v/s assessed;noted b/p values w/in normal limits.no c/o pain,nausea.iv access intact;patent;iv fluids infusing.no requests posited @this hour.general status stable.respiratpry status stsbl;e.unlabored.call light/telephone w/in reach of the pt.
--- NOTE | 2019-02-17 00:02 | NUR ---
PATIENT IN BED WAKE AND RESTING. NO COMPLAINTS OF PAIN OR RESPIRATORY DISTRESS. PATIENT JUST AMBULATED THE UNIT WITH STEADY GAIT. CALL LIGHT WITHIN REACH. WILL CONTINUE TO MONITOR ON ROUNDS. Addendum: 02/18/19 at 0003 by Salinas Reeves RN WRONG TIME.
[2019-02-17 00:27] VITALS: BP_SYST 144
--- NOTE | 2019-02-17 01:00 | NUR ---
pt.had requested medication;pain.i have administered morphine;2mg ivp.to f/u rel;pain medication efficacy per pain mgx. protocol no additional requested [id number] @this hour.
[2019-02-17] MEDS: MORPHINE 2 MG/ML INJ. SYRINGE IVP PRN ×6 (01:02→20:52)
[2019-02-17] MEDS: D5NS 1,000 ML IV SCH ×2 (01:06→20:24)
--- NOTE | 2019-02-17 02:00 | NUR ---
pt.assessed.pt.presents quiescent affect;calm,somnolent iv fluids infusing.general status stable.respiratory status stable; unlabored call light/telephone w./in reach 0f the pt.
--- NOTE | 2019-02-17 04:00 | NUR ---
pt.assessed.pt.presents quiescent affect;calm,somnolent,.iv fluids infusing.general status stable.resperatory status stable unlabored. call light/[id number] w/in the reach of the pt.
--- NOTE | 2019-02-17 05:00 | NUR ---
pt had requested medication;pain,anxiety.i have administered morphine;2mg ivp;to f/u re;pain medication efficacy per pain mgx protocol.i have administered ativan;2mg ivp.no additional requested posited @this hour.
[2019-02-17] MEDS: LORazepam 2 MG/ML VIAL IVP PRN (05:20)
--- NOTE | 2019-02-17 06:30 | NUR ---
pt assessed.pt.presents quiescent affect;calm,somnolent.iv fluids infusing.general status stable.respiratory status stable;unlabored. call light/telephone w/in reach of the pt.
[2019-02-17 06:54] LABS: CALCIUM 8.3 mg/dL (8.4-11.0); CREATININE 0.63 mg/dL (0.55-1.30); POTASSIUM 3.6 mmol/L (3.5-5.1)
[2019-02-17 07:00] LABS: BASOPHILS % (AUTO) 0.6 % (0.0-2.0); EOSINOPHILS # (AUTO) 0.1 K/uL (0.0-0.4); EOSINOPHILS % (AUTO) 1.6 % (0.0-4.0); HEMATOCRIT 23.8 % (36-48); HEMOGLOBIN 7.4 g/dL (12.0-16.0); LYMPHOCYTES # (AUTO) 1.4 K/uL (1.0-5.5); LYMPHOCYTES % (AUTO) 26.4 % (20.5-51.5); MEAN CORPUSCULAR HEMOGLOBIN 21 pg (27-31); MEAN CORPUSCULAR HGB CONC 31 % (32-36); MEAN CORPUSCULAR VOLUME 66 fL (79.0-98.0); MONOCYTES # (AUTO) 0.4 K/uL (0.0-1.0); MONOCYTES % (AUTO) 8.3 % (1.7-9.3); NEUTROPHILS # (AUTO) 3.3 K/uL (1.8-7.7); NEUTROPHILS % (AUTO) 63.1 % (40.0-70.0); PLATELET COUNT (AUTO) 305 K/uL (130-430); WHITE BLOOD COUNT (AUTO) 5.2 K/uL (4.8-10.8)
[2019-02-17 07:08] LABS: RED CELL DISTRIBUTION WIDTH 27.7 % (9.0-15.0)
[2019-02-17 08:00] VITALS: BP_SYST 138
--- NOTE | 2019-02-17 08:00 | NUR ---
INITIAL NOTES- In bed, awake, alert and oriented. Pain is controlled at this time. IVF infusing well. Wants to go home. No acute distress noted. Update plan of care. will monitor.
[2019-02-17] MEDS: cefTRIAXone 1 GM in D5W 50 ML IV SCH (09:18)
[2019-02-17] MEDS: LISINOPRIL 10 MG TABLET (PRINIVIL) PO SCH ×2 (09:18→20:24)
[2019-02-17] MEDS: METOPROLOL TARTRATE 50 MG TABLET PO SCH ×2 (09:18→20:24)
--- NOTE | 2019-02-17 10:00 | NUR ---
resting at this time. no seizures noted. ambulate to the bathroom with steady gait.
[2019-02-17] MEDS: SOD FERRIC GLUC COMPLEX/SUC 125 MG in NS 100 ML IV SCH (10:19)
[2019-02-17 12:15] VITALS: BP_SYST 119
--- NOTE | 2019-02-17 13:20 | NUR ---
Pt went to MRI at this time.
--- NOTE | 2019-02-17 15:29 | NUR ---
Notes- Pt is having EEG at bedside at this time.
--- NOTE | 2019-02-17 18:55 | NUR ---
closing notes- in bed, watching tv. complaining of her IV site is hurting. informed pt that we need to change her IV site. No acute distress noted. All needs meet. Will endorse.
--- NOTE | 2019-02-17 19:18 | NUR ---
OPENING NOTES RECEIVED PATIENT IN BED RESTING ALERT AND ORIENT X 4 AND ABLE TO VERBALIZE NEEDS. IV SITE INTACT CLEAN AND DRY. INFUSING NS AT 80ML/HR. PATIENT WANTS RATE AT 40ML/HR FOR COMFORT. REFUSING NEW IV SITE PLACEMENT. PATIENT HAS COMPLAINTS OF BACK PAIN AND WILL ASK FOR PAIN MEDICATION WHEN NEEDED. AMBULATORY WITH A STEADY GAIT. REFUSED SCD'S AND BED ALARM. EDUCATION ON RISK AND BENEFITS PROVIDED. CALL LIGHT PLACED WITHIN REACH AND WILL MONITOR ON ROUNDS.
[2019-02-17 20:00] VITALS: BP_SYST 134
--- NOTE | 2019-02-17 22:15 | NUR ---
ADMINISTERED PAIN MEDICATION AND SCHEDULED MEDS. TOLERATED WELL WITH NO FURTHER COMPLAINTS. WILL CONT TO MONITOR ON ROUNDS.
--- NOTE | 2019-02-18 00:03 | NUR ---
PATIENT IN BED WAKE AND RESTING. NO COMPLAINTS OF PAIN OR RESPIRATORY DISTRESS. PATIENT JUST AMBULATED THE UNIT WITH STEADY GAIT. CALL LIGHT WITHIN REACH. WILL CONTINUE TO MONITOR ON ROUNDS.
[2019-02-18 00:35] VITALS: BP_SYST 155
[2019-02-18] MEDS: LORazepam 2 MG/ML VIAL IVP PRN (00:58)
[2019-02-18] MEDS: MORPHINE 2 MG/ML INJ. SYRINGE IVP PRN ×4 (00:58→13:24)
--- NOTE | 2019-02-18 02:13 | NUR ---
IV INSERTION TO RIGHT WRIST 22G. GOOD BLOOD RETURN AND FLUSHED WITH 10ML NS. PATIENT STATES HAVING PAIN TO LEFT IV SITE. IV REMOVED WITH CATHETER TIP INTACT. GAUZE PLACED OVER SITE WITH NO BLEEDING.
--- NOTE | 2019-02-18 02:14 | NUR ---
ADMINISTERED PAIN MEDICATION FOR BACK PAIN AND ATIVAN FOR ANXIETY. TOLERATED WELL. WILL MONITOR ON ROUNDS.
--- NOTE | 2019-02-18 04:19 | NUR ---
NO CHANGE IN CONDITION.
--- NOTE | 2019-02-18 06:38 | NUR ---
CLOSING NOTE PATIENT IN BEST RESTING. PAIN HAS BEEN CONTROLLED. NO RESPIRATORY DISTRESS. BED ALARM IS STILL REFUSED. SEIZURE AND SAFETY PRECAUTIONS IN PLACE. PATIENT HAS BEEN AMBULATORY WITH A STEADY GAIT. IV INTACT WITH NO PAIN AT THE SITE. ALL NEEDS HAVE BEEN MET AND WILL ENDORSE CARE TO ONCOMING NURSE. CALL LIGHT WITHIN REACH.
--- NOTE | 2019-02-18 07:18 | NUR ---
OPENING NOTE BEDSIDE SBAR REPORT RECEIVED FROM NIGHTSHIFT RN. PATIENT RESTING IN BED, RESPIRATIONS EVEN AND UNLABORED ON ROOM AIR, NO ACUTE DISTRESS NOTED, ROOM CLOSE TO NURSES STATION, SIDE RAILS PADDED, EDUCATED PATIENT ON USE OF CALL LIGHT AND ASKED TO CALL FOR ASSISTANCE, PATIENT VERBALIZED UNDERSTANDING, CALL LIGHT IN REACH, EDUCATED PATIENT ON USE OF BED ALARM FOR PATIENT SAFETY, PATIENT REFUSING BED ALARM, BED IN LOW AND LOCKED POSITION.
[2019-02-18 08:00] LABS: BASOPHILS % (AUTO) 0.6 % (0.0-2.0); EOSINOPHILS # (AUTO) 0.1 K/uL (0.0-0.4); EOSINOPHILS % (AUTO) 2.1 % (0.0-4.0); HEMATOCRIT 23.3 % (36-48); HEMOGLOBIN 7.3 g/dL (12.0-16.0); LYMPHOCYTES # (AUTO) 1.6 K/uL (1.0-5.5); MEAN CORPUSCULAR HEMOGLOBIN 21 pg (27-31); MEAN CORPUSCULAR HGB CONC 31 % (32-36); MEAN CORPUSCULAR VOLUME 67 fL (79.0-98.0); MONOCYTES # (AUTO) 0.4 K/uL (0.0-1.0); MONOCYTES % (AUTO) 7.6 % (1.7-9.3); NEUTROPHILS % (AUTO) 58.7 % (40.0-70.0); PLATELET COUNT (AUTO) 294 K/uL (130-430); RED BLOOD CELL COUNT(AUTO) 3.48 MIL/uL (4.2-6.2); RED CELL DISTRIBUTION WIDTH 27.3 % (9.0-15.0); WHITE BLOOD COUNT (AUTO) 5.1 K/uL (4.8-10.8)
[2019-02-18] MEDS: D5NS 1,000 ML IV SCH (08:00)
[2019-02-18 08:17] LABS: CALCIUM 8.4 mg/dL (8.4-11.0); CREATININE 0.72 mg/dL (0.55-1.30); POTASSIUM 3.6 mmol/L (3.5-5.1)
[2019-02-18] MEDS: cefTRIAXone 1 GM in D5W 50 ML IV SCH (08:50)
[2019-02-18] MEDS: METOPROLOL TARTRATE 50 MG TABLET PO SCH (08:51)
[2019-02-18] MEDS: LISINOPRIL 10 MG TABLET (PRINIVIL) PO SCH (08:51)
--- NOTE | 2019-02-18 09:10 | NUR ---
PAGED PHYSICIAN PATIENT ASKING TO BE DISCHARGED HOME BEFORE NOON, DUE TO TRANSPORTATION, DR ANDUJAR PAGEJose, AWAITING CALL BACK.
--- NOTE | 2019-02-18 09:50 | NUR ---
PHYSICAL THERAPY PHYSICAL THERAPY WITH PATIENT AMBULATING IN [place], STEADY GAIT NOTED, PATIENT TOLERATING WELL
[2019-02-18] MEDS: SOD FERRIC GLUC COMPLEX/SUC 125 MG in NS 100 ML IV SCH (10:14)
[2019-02-18 10:30] VITALS: BP_SYST 142
--- NOTE | 2019-02-18 10:57 | NUR ---
PHYSICIAN ROUNDS ROUNDS WITH DR ANDUJAR, PER DR KING, NEURO CLEARANCE IS NEEDED BEFORE DISCHARGE HOME, INFORMED HER OF AM LAB HGB 7.3, NO NEW ORDERS.
--- NOTE | 2019-02-18 11:00 | NUR ---
PAGED PHYSICIAN PAGED DR STEWART REGARDING CLEARANCE FOR DISCHARGE, AWAITING CALL BACK.
[2019-02-18 12:28] VITALS: BP_SYST 150
--- NOTE | 2019-02-18 12:30 | NUR ---
AMBULATED TO BATHROOM PATIENT AMBULATED TO BATHROOM, NO ASSISTANCE REQUIRED, PATIENT AMBULATED BACK TO BED, RESTING IN BED, FALL PRECAUTIONS IN PLACE.
--- NOTE | 2019-02-18 13:11 | NUR ---
Dietitian Recommendations * Recommend continuing regular diet LP, RD Please refer to Nutrition Assessment for details. Addendum: 02/18/19 at [address] Amended: Links added.
--- NOTE | 2019-02-18 14:13 | NUR ---
RN ROUNDS PATIENT IN BED RESTING, RESPIRATIONS EVEN AND UNLABORED ON ROOM AIR, NO DISTRESS NOTED, FAMILY MEMBER AT BEDSIDE. Addendum: 02/18/19 at 1415 by Santosh Negro RN DISREGARD ABOVE NOTE, WRONG PATIENT
--- NOTE | 2019-02-18 14:15 | NUR ---
RN ROUNDS PATIENT IN BED, RESPIRATIONS EVEN AND UNLABORED, PATIENT REPORTS PAIN IS CONTROLLED AT THIS TIME.
[2019-02-18] MEDS ORDERED: METO-442 PO (14:45)
[2019-02-18] MEDS ORDERED: IRON-14 PO (14:45)
--- NOTE | 2019-02-18 16:08 | NUR ---
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
[2019-02-18 16:33] VITALS: BP_SYST 149
--- NOTE | 2019-02-18 16:40 | NUR ---
RN ROUNDS PATIENT STATING PAIN AT IV SITE AND REQUESTING TO HAVE IV REMOVED, IV CATHETER REMOVED, CATHETER INTACT, NO BLEEDING.
[2019-02-18 17:04] VITALS: BP_SYST 149
[2019-02-18] MEDS: ACETAMINOPHEN 325 MG TABLET PO PRN (17:42)
--- NOTE | 2019-02-18 17:50 | NUR ---
Spoke with Physician Spoke with Dr. Nicole, informed her that 325 mg acetaminophen was given, patient requested one more dose for pain, new orders received, verified with read back.
[2019-02-18] MEDS ORDERED: ACETAMINOPHEN 325 MG TABLET PO ONE (18:00)
--- NOTE | 2019-02-18 19:08 | NUR ---
Discharge Provided patient with discharge packet and instructions, patient verbalized understanding, patient reports pain is controlled at this time, no acute distress noted, steady gait noted, patient accompanied by daughter Yancy for discharge home, all belongings sent with patient, patient refusing wheel chair, patient ambulated to parking lot with daughter.
== END 2019-02-18 19:08 | disposition home or self-care (01) | DRG 689 ==
LOC: SED 16:56 → STU 02-13 03:00 → SMU 02-16 16:17
PROVIDERS: ADMIT General Practice; ATTEND General Practice
PROC: 30233N1 Transfusion of Nonautologous Red Blood Cells into Peripheral Vein, Percutaneous Approach (ICD-10-PCS; principal; 2019-02-14)
DX: N39.0 Urinary tract infection, site not specified (principal); G93.41 Metabolic encephalopathy; I10 Essential (primary) hypertension; F32.9 Major depressive disorder, single episode, unspecified; G47.00 Insomnia, unspecified; G62.9 Polyneuropathy, unspecified; G89.29 Other chronic pain; G40.909 Epilepsy, unspecified, not intractable, without status epilepticus; D50.9 Iron deficiency anemia, unspecified; Z79.899 Other long term (current) drug therapy; Z91.041 Radiographic dye allergy status
CPT/HCPCS: 36415; 70450-TC; 70551; 71045; 80048; 80053; 80156-TC; 80164-TC; 80307; 81000-TC; 82140-TC; 82272; 82550-TC; 82607; 82728; 82746; 83036; 83540-TC; 83550-TC; 83605; 83735-TC; 84439; 84443-TC; 84484; 85018-TC; 85025; 85610-TC; 85730-TC; 86886; 86900; 86901; 86920; 87040-TC; 92610-GN; 93005; 95816; 96361; 96365; 96375; 97110-GP; 97116-GP; 97530-GP; 99285; G0378; G0480; G0481; G0482; J0360; J0696; J2060; J2270; J2310; J2916; J3480; J3490; J7042; J7050; J7060; P9021